=== PATIENT | male | born 1945 | race Caucasian/White ===

== ENCOUNTER 2020-11-12 12:53 | Inpatient (IN) | payer MEDICARE, OTHER ==
[2020-11-12] MEDS ORDERED: Azithromycin 500 MG VIAL ONE (14:26)
[2020-11-12] MEDS ORDERED: Dexamethasone 10 MG/ML VIAL ONE (14:27)
--- NOTE | 2020-11-12 14:29 | RAD ---
XR Chest 1 View Portable History: Dyspnea Comparison: None. Findings: Patchy peripheral and perihilar airspace consolidation. No pneumothorax. No acute osseous a bnormality. Impression: Commonly reported imaging findings of Covid-19 pneumonia.
[2020-11-12 15:39] LABS: #Lymphocytes 0.4 thou/uL (1.20-3.40); #Monocytes 0.1 thou/uL (0.11-0.59); #Neutrophils 7.1 thou/uL (1.40-6.50); %Basophils 0.1 % (0.0-1.0); %Eosinophils 0.1 % (0.0-10.0); %Lymphocytes 4.9 % (21.0-51.0); %Monocytes 1.2 % (0.0-10.0); %Neutrophils 93.7 % (42.0-75.0); Mean Corpuscular Hemoglobin 33.2 pg (27.0-31.0); Mean Corpuscular Volume 97.7 fL (78.0-98.0); Mean Platelet Volume 7.7 fL (7.4-10.4); Platelet Count 238 thou/uL (130-400); RBC Distribution Width 11.4 % (11.5-14.5); Red Blood Cell (RBC) Count 3.91 mill/uL (4.70-6.10); White Blood Cell (WBC) Count 7.6 thou/uL (4.8-10.8)
[2020-11-12 15:50] LABS: ALT (SGPT) 25 U/L (8-55); AST (SGOT) 37 U/L (5-34); Albumin 3.4 g/dL (3.4-4.8); Alkaline Phosphatase 82 U/L (40-110); Anion Gap 17 mmol/L (10-20); BUN (Urea Nitrogen) 19 mg/dL (8.4-25.7); Bilirubin, Total 0.5 mg/dL (0.2-1.2); Calc. Creatinine Clearance 0 mL/min (70-130); Calcium 8.7 mg/dL (7.8-10.44); Carbon Dioxide 25 mmol/L (23-31); Chloride 99 mmol/L (98-107); Globulin 3.3 g/dL (2.4-3.5); Glucose 286 mg/dL (83-110); Potassium 5.2 mmol/L (3.5-5.1); Protein, Total 6.7 g/dL (5.8-8.1); Sodium 136 mmol/L (136-145)
[2020-11-12] MEDS ORDERED: cefTRIAXone\\ROCEPHIN 2 GM VIAL ONE (16:48)
[2020-11-12] MEDS ORDERED: Acetaminophen 325 MG TAB ONE (17:45)
[2020-11-12] MEDS ORDERED: Acetaminophen 650 MG Suppository PR PRN (18:02)
[2020-11-12] MEDS ORDERED: Albuterol 200 PUFF (6.7GM INHALER) INH PRN (18:09)
[2020-11-12] MEDS ORDERED: Pharmacy to Dose - REMDESIVIR IVPB PRN (18:10)
[2020-11-12] MEDS ORDERED: Dextrose 50% Abboject 50 ML SYRINGE SLOW IVP PRN (18:13)
[2020-11-12] MEDS ORDERED: Dextrose 5% in Water 1,000 ML IV PRN (18:13)
[2020-11-12 18:52] LABS: Lactic Acid 2.7 mmol/L (0.5-2.2)
[2020-11-12 18:53] LABS: Anion Gap 17 mmol/L (10-20); Carbon Dioxide 21 mmol/L (23-31); Chloride 101 mmol/L (98-107); Potassium 5.2 mmol/L (3.5-5.1); Sodium 134 mmol/L (136-145)
[2020-11-12] MEDS ORDERED: Enoxaparin Sodium 40 MG/0.4 ML SYRINGE SC SCH ×2 (19:00→22:30)
[2020-11-12] MEDS ORDERED: Enoxaparin Sodium 40 MG/0.4 ML SYRINGE ONE (19:49)
[2020-11-12] MEDS ORDERED: Famotidine 20 MG TAB ONE (19:49)
[2020-11-12] MEDS: HumaLOG 300 UNITS/3 ML VIAL SC PRN (19:59)
[2020-11-12] MEDS ORDERED: HumaLOG 300 UNITS/3 ML VIAL ONE (19:59)
--- NOTE | 2020-11-12 20:27 | PDOC.HHP ---
Hospitalist HPI - History of Present Illness History of Present Illness: ADMISSION DATE: 11/12/2020 TIME OF ASSESSMENT: 1800 PRIMARY CARE PHYSICIAN: None CHIEF COMPLAINT: Shortness of breath HPI: This is a 75-year-old gentleman who presents to the emergency department with complaints of shortness of breath this morning secondary to Covid pneumonia. He was diagnosed after presenting to the [facility] today before yesterday. He states he was sent home and reattended the ED [facility] due to persistent difficulty breathing. Patient states nothing was done for him and today when he had another episode of trouble breathing he asked EMS to bring him here. Patient states that he first started feeling generally unwell and weak on 11/08/2020. This is after taking a trip to [place] with his family. He reports catching Covid from his daughter. States upon returning from the trip he began to feel achy all over" just sick". He has had a complete lack of energy the last several days but the difficulty with his breathing did not start until this weekend. This morning he developed loose stools. He has not had any purulent sputum or hemoptysis. No chest pain. When he was seen in the ER yesterday morning, diagnosed with COVID pneumonia and discharged home. He returned later in the evening due to sats of 88% on RA however in the ED his sats were 94-95% on RA and he was discharged home. Following initial presentation to the ED he had a CT angiogram of the chest done showing Covid pneumonia, hiatal hernia with wall thickening involving a large portion of the esophagus, suboptimal evaluation of the pulmonary arteries able to the bilateral lower lobes due to motion limiting evaluation. Hepatic steatosis, probable reactive mediastinal lymphadenopathy and pleural-based calcifications at each lung base, nonspecific and felt to be associated with p rior asbestos exposure. Per EMS, today he was noted to be hypoxic at 85% on room air which improved to 95% on 2 l by nasal cannula after 6 puffs of albuterol and 125 mg of Solu-Medrol IV. ED COURSE: On arrival to the emergency department he had an EKG done which showed normal sinus rhythm with a heart rate of 71. No ST changes or T wave abnormalities present. Laboratory studies showed a white cell count of 7.6, hemoglobin 13, hematocrit 38.2, platelets 238, neutrophils 93.7%. Sodium 136, potassium 5.2, BUN 19, creatinine 0.96, GFR 76, glucose 26, AST 37, LFTs otherwise unremarkable. Chest x-ray showed patchy peripheral and perihilar airspace consolidation with findings consistent with Covid 19 pneumonia. He received dexamethasone 10 mg IV and was started on IV antibiotics with Rocephin and azithromycin. The patient was given IV fluids as well as Tylenol for his fever. PAST MEDICAL HISTORY: 1. CAD 2. GERD 3. Hyperlipidemia 4. Hypertension 5. Diabetes mellitus 6. Obesity PAST SURGICAL HISTORY: 1. Carpal tunnel surgery, left wrist 2. Coronary artery stents x3 SOCIAL HISTORY: Patient denies any tobacco use, alcohol consumption or drug use. He is normally independent at baseline and mobilizes without the use of assistive devices. FAMILY HISTORY: Noncontributory ALLERGIES: No known drug allergies CURRENT MEDICATIONS: 1. Novolin 2. Lisinopril 3. Aspirin 4. Metformin 5. Clopidogrel 6. Atorvastatin Hospitalist ROS - Medication Medications: Active Medications Generic Name Dose Route Start Last Admin Trade Name Freq PRN Reason Stop Dose Admin Enoxaparin Sodium 40 mg 11/12/20 19:00 11/12/20 19:58 Enoxaparin Sodium 40 Mg/0.4 Ml Syringe SC 11/12/20 21:15 40 mg NOW DENISE Administration Insulin Human Lispro 0 units 11/12/20 18:13 11/12/20 19:59 Humalog 300 Units/3 Ml Vial SC 5 unit .BEDTIME SLIDING SC PRN Administration Bedtime Correctional Scale - Exam General Appearance: NAD (Resting comfortably watching tv), awake alert General - other findings: VS: Temp 98.8, HR 79, BP 170/77, RR 20, O2 sat 95% on 2 L Eye: PERRL, anicteric sclera ENT: normocephalic atraumatic, no oropharyngeal lesions, moist mucosa Neck: supple, no lymphadenopathy Heart: RRR, normal peripheral pulses Respiratory: CTAB, normal chest expansion, no tachypnea Gastrointestinal: soft (obese), non-tender, non-distended, normal bowel sounds, no guarding, no rigidity Extremities - other findings: trace edema Skin: normal turgor, no lesions, no rashes Neurological: cranial nerve grossly intact, normal sensation to touch, no weakness Musculoskeletal: normal tone, normal strength, no muscle wasting, generalized weakness Psychiatric: normal affect, normal behavior, A&O x 3 Hospitalist Results - Labs Result Diagrams: 11/12/20 15:18 11/12/20 18:24 Lab results: WBC 7.6 thou/uL (4.8-10.8) 11/12/20 15:18 Hgb 13.0 g/dL (14.0-18.0) L 11/12/20 15:18 Hct 38.2 % (42.0-52.0) L 11/12/20 15:18 MCV 97.7 fL (78.0-98.0) 11/12/20 15:18 Plt Count 238 thou/uL (130-400) 11/12/20 15:18 Neutrophils % 93.7 % (42.0-75.0) H 11/12/20 15:18 Sodium 134 mmol/L (136-145) L 11/12/20 18:24 Potassium 5.2 mmol/L (3.5-5.1) H 11/12/20 18:24 Chloride 101 mmol/L (98-107) 11/12/20 18:24 Carbon Dioxide 21 mmol/L (23-31) L 11/12/20 18:24 BUN 19 mg/dL (8.4-25.7) 11/12/20 15:18 Creatinine 0.96 mg/dL (0.7-1.3) 11/12/20 15:18 Glucose 286 mg/dL (83-110) H 11/12/20 15:18 Lactic Acid 2.7 mmol/L (0.5-2.2) H 11/12/20 18:24 Calcium 8.7 mg/dL (7.8-10.44) 11/12/20 15:18 Total Bilirubin 0.5 mg/dL (0.2-1.2) 11/12/20 15:18 AST 37 U/L (5-34) H 11/12/20 15:18 ALT 25 U/L (8-55) 11/12/20 15:18 Alkaline Phosphatase 82 U/L (40-110) 11/12/20 15:18 Troponin I Less than 0.010 ng/mL (< 0.028) 11/12/20 15:18 B-Natriuretic Peptide 11.1 pg/mL (0-100) 11/12/20 15:18 Serum Total Protein 6.7 g/dL (5.8-8.1) 11/12/20 15:18 Albumin 3.4 g/dL (3.4-4.8) 11/12/20 15:18 - Radiology Interpretation Chest x-ray Status: report reviewed by ga Hospitalist H&P A/P - Problem (1) Acute respiratory failure with hypoxia Code(s): J96.01 - ACUTE RESPIRATORY FAILURE WITH HYPOXIA Status: Acute (2) Pneumonia due to COVID-19 virus Code(s): U07.1 - COVID-19; J12.82 - PNEUMONIA DUE TO CORONAVIRUS DISEASE 2018 Status: Acute (3) General weakness Code(s): R53.1 - WEAKNESS Status: Acute (4) Diarrhea Code(s): R19.7 - DIARRHEA, UNSPECIFIED Status: Acute (5) Diabetes mellitus Code(s): E11.9 - TYPE 2 DIABETES MELLITUS WITHOUT COMPLICATIONS Status: Chron ic (6) Hypertension Code(s): I10 - ESSENTIAL (PRIMARY) HYPERTENSION Status: Chronic (7) GERD (gastroesophageal reflux disease) Code(s): K21.9 - GASTRO-ESOPHAGEAL REFLUX DISEASE WITHOUT ESOPHAGITIS Status: Chronic (8) Hyperlipidemia Code(s): E78.5 - HYPERLIPIDEMIA, UNSPECIFIED Status: Chronic (9) CAD (coronary artery disease) Code(s): I25.10 - ATHSCL HEART DISEASE OF [place] CORONARY ARTERY W/O ANG PCTRS Status: Chronic - Plan Plan: Acute respiratory failure with hypoxia secondary to COVID 19 pneumonia Sats improved Continue Dexamethasone, Vitamin C and Zinc Tessalon perles for cough and albuterol inhaler Screen for Remdesivir (symptoms started 11/08/20) Monitor O2 sats Repeat lactic acid General weakness PT/OT consulted Diarrhea If persists, obtain stool studies Diabetes Mellitus Monitor glucose (ACHS accu-cheks) Initiate sliding scale Hypertension Monitor BP Resume home meds once verified CAD Chronic and stable Resume statin and aspirin GERD Famotidine 20 mg BID DVT Prophylaxis Enoxaparin, enhanced dose of 40 mg BID given hypercoagulability with COVID19. CODE STATUS FULL Case discussed with Dr. Hinkle who agrees with plan as above.
[2020-11-12] MEDS ORDERED: Famotidine 20 MG TAB PO SCH (22:30)
[2020-11-12] MEDS: Sodium Chloride 0.45% 1,000 ML IV SCH (23:39)
[2020-11-12] MEDS: Benzonatate 100 MG CAP PO PRN (23:41)
[2020-11-12] MEDS: Acetaminophen 325 MG TAB PO PRN (23:41)
[2020-11-13] MEDS ORDERED: SODIUM CHLORIDE 0.9% IV SCH (02:00)
[2020-11-13] MEDS ORDERED: REMDESIVIR IV SCH (02:00)
[2020-11-13] MEDS ORDERED: REMDESIVIR (EUA) 200 MG in Sodium Chloride 0.9% 250 ML 210 ML IV SCH (02:00)
[2020-11-13] MEDS: HumaLOG 300 UNITS/3 ML VIAL SC PRN ×4 (05:42→21:02)
[2020-11-13] MEDS: Benzonatate 100 MG CAP PO PRN ×2 (05:43→18:02)
[2020-11-13 06:22] LABS: #Lymphocytes 0.5 thou/uL (1.20-3.40); #Monocytes 0.1 thou/uL (0.11-0.59); #Neutrophils 7.9 thou/uL (1.40-6.50); %Basophils 0.1 % (0.0-1.0); %Eosinophils 0.1 % (0.0-10.0); %Lymphocytes 5.9 % (21.0-51.0); %Monocytes 1.6 % (0.0-10.0); %Neutrophils 92.3 % (42.0-75.0); Hemoglobin 12.6 g/dL (14.0-18.0); Mean Corpuscular HGB CONC 33.2 g/dL (32.0-36.0); Mean Corpuscular Volume 99.5 fL (78.0-98.0); Mean Platelet Volume 7.7 fL (7.4-10.4); Platelet Count 236 thou/uL (130-400); RBC Distribution Width 11.4 % (11.5-14.5); Red Blood Cell (RBC) Count 3.82 mill/uL (4.70-6.10); White Blood Cell (WBC) Count 8.6 thou/uL (4.8-10.8)
[2020-11-13 06:44] LABS: ALT (SGPT) 29 U/L (8-55); AST (SGOT) 39 U/L (5-34); Albumin 3.1 g/dL (3.4-4.8); Alkaline Phosphatase 80 U/L (40-110); Anion Gap 18 mmol/L (10-20); BUN (Urea Nitrogen) 17 mg/dL (8.4-25.7); Bilirubin, Total 0.4 mg/dL (0.2-1.2); Calc. Creatinine Clearance 77 mL/min (70-130); Calcium 8.2 mg/dL (7.8-10.44); Carbon Dioxide 20 mmol/L (23-31); Chloride 101 mmol/L (98-107); Glucose 336 mg/dL (83-110); Potassium 4.8 mmol/L (3.5-5.1); Protein, Total 6.1 g/dL (5.8-8.1); Sodium 134 mmol/L (136-145)
[2020-11-13 06:52] LABS: CRP (Inflammatory) 12.7 mg/dL (= or < 0.5); Magnesium 1.7 mg/dL (1.6-2.6)
[2020-11-13] MEDS: Ascorbic Acid 500 mg Chewable Tablet PO SCH (08:02)
[2020-11-13] MEDS: Dexamethasone 4 mg/ml Vial SLOW IVP SCH (08:04)
[2020-11-13] MEDS: Famotidine 20 MG TAB PO SCH ×2 (08:04→21:04)
[2020-11-13] MEDS: Enoxaparin Sodium 40 MG/0.4 ML SYRINGE SC SCH ×2 (08:06→21:03)
[2020-11-13] MEDS: Zinc Sulfate 220 MG CAP PO SCH (08:50)
[2020-11-13] MEDS ORDERED: Enoxaparin Sodium 40 MG/0.4 ML SYRINGE SC SCH (09:00)
[2020-11-13] MEDS ORDERED: FLU VACC QS2020-21(65YR UP)/PF 240 MCG/0.7 ML SYRINGE IM ONE (09:00)
[2020-11-13] MEDS: Sodium Chloride 0.45% 1,000 ML IV SCH (16:25)
--- NOTE | 2020-11-13 16:30 | PDOC.HOSPP ---
- Subjective Encounter Date: 11/13/20 Encounter Time: 16:28 Subjective: Mr. Huizar was seen today in follow-up of respiratory failure due to COVID. He says he is feeling better. His breathing has improved. He denies chest pain. - Objective Vital Signs & Weight: Vital Signs (12 hours) Temp Pulse Resp BP BP Pulse Ox 11/13/20 15:29 97.8 F 75 17 118/64 86 L 11/13/20 11:27 98.0 F 78 16 126/62 91 L 11/13/20 08:00 92 L 11/13/20 07:15 98.3 F 73 15 129/68 92 L Weight Weight 174 lb I&O: 11/12/20 11/13/20 11/14/20 06:59 06:59 06:59 Intake Total 1070 Output Total 550 Balance 520 Result Diagrams: 11/13/20 05:29 11/13/20 05:29 Additional Labs: Accuchecks 11/13/20 11/13/20 11/13/20 15:31 11:29 03:23 POC Glucose 314 H 324 H 259 H 11/12/20 19:55 POC Glucose 356 H Hospitalist ROS - Medication Medications: Active Medications Generic Name Dose Route Start Last Admin Trade Name Freq PRN Reason Stop Dose Admin Acetaminophen 650 mg 11/12/20 18:02 11/12/20 23:41 Acetaminophen 325 Mg Tab PO 650 mg Q4H PRN Administration Headache/Fever/Mild Pain (1-3) Ascorbic Acid 1,000 mg 11/13/20 09:00 11/13/20 08:02 Ascorbic Acid 500 Mg Chewable Tablet PO 1,000 mg DAILY DENISE Administration Benzonatate 100 mg 11/12/20 18:09 11/13/20 05:43 Benzonatate 100 Mg Cap PO 100 mg Q4H PRN Administration Cough Dexamethasone 6 mg 11/13/20 09:00 11/13/20 08:04 Dexamethasone 4 Mg/Ml Vial SLOW IVP 6 mg DAILY DENISE Administration Enoxaparin Sodium 40 mg 11/13/20 09:00 11/13/20 08:06 Enoxaparin Sodium 40 Mg/0.4 Ml Syringe SC 40 mg 0900,2100 DENISE Administration Famotidine 20 mg 11/13/20 09:00 11/13/20 08:04 Famotidine 20 Mg Tab PO 20 mg BID DENISE Administration Sodium Chloride 1,000 mls @ 50 mls/hr 11/12/20 21:30 11/13/20 16:25 1/2 Normal Saline IV 1,000 mls .Q20H DENISE Administration Insulin Human Lispro 0 units 11/12/20 18:13 11/13/20 16:24 Humalog 300 Units/3 Ml Vial SC 5 unit .MILD SLIDING SCALE PRN Administration Mild Correctional Scale Insulin Human Lispro 0 units 11/12/20 18:13 11/12/20 19:59 Humalog 300 Units/3 Ml Vial SC 5 unit .BEDTIME SLIDING SC PRN Administration Bedtime Correctional Scale Zinc Sulfate 220 mg 11/13/20 09:00 11/13/20 08:50 Zinc Sulfate 220 Mg Cap PO Not Given DAILY DENISE - Exam Eye: PERRL, anicteric sclera Heart: RRR, no murmur, no gallops, no rubs, normal peripheral pulses Respiratory: rales (at both bases) Gastrointestinal: soft, non-tender, non-distended, normal bowel sounds, no palpable masses, no hepatomegaly Extremities: no cyanosis, no edema (+ good d.p. pulses bilaterally no lesions) Hosp A/P (1) Acute respiratory failure with hypoxia Code(s): J96.01 - ACUTE RESPIRATORY FAILURE WITH HYPOXIA Status: Acute (2) General weakness Code(s): R53.1 - WEAKNESS Status: Acute (3) Pneumonia due to COVID-19 virus Code(s): U07.1 - COVID-19; J12.82 - PNEUMONIA DUE TO CORONAVIRUS DISEASE 2019 Status: Acute (4) CAD (coronary artery disease) Code(s): I25.10 - ATHSCL HEART DISEASE OF [place] CORONARY ARTERY W/O ANG PCTRS Status: Chronic (5) Diabetes mellitus Code(s): E11.9 - TYPE 2 DIABETES MELLITUS WITHOUT COMPLICATIONS Status: Chronic (6) GERD (gastroesophageal reflux disease) Code(s): K21.9 - GASTRO-ESOPHAGEAL REFLUX DISEASE WITHOUT ESOPHAGITIS Status: Chronic - Plan * Acute respiratory failure due to COVID - continue Decadron and Remdesivir * CAD- stable * DM- blood glucose is elevated- likely as a result of the Decadron- will add a low dose Lantus, and continue the SSI * Continue DVT and GI prophylaxis
[2020-11-13] MEDS: Insulin Glargine 10 UNITS in Pre-Filled Syringe 1 EACH SC SCH (21:03)
--- NOTE | 2020-11-13 21:45 | PDOC.BPN ---
- Brief Progress Note Encounter Date: 11/13/20 Also informed of patient growing 1 in 2 bottles of staph epididymis This is likely a contamination Hold antibiotics for now and monitor vitals.
[2020-11-14] MEDS ORDERED: REMDESIVIR (EUA) 100 MG in Sodium Chloride 0.9% 250 ML 230 ML IV SCH (02:00)
[2020-11-14] MEDS: REMDESIVIR (EUA) 100 MG in Sodium Chloride 0.9% 100 ML IV SCH (02:03)
[2020-11-14] MEDS: Benzonatate 100 MG CAP PO PRN ×2 (02:33→17:01)
[2020-11-14] MEDS: HumaLOG 300 UNITS/3 ML VIAL SC PRN ×4 (05:33→20:51)
[2020-11-14] MEDS: Zinc Sulfate 220 MG CAP PO SCH (08:55)
[2020-11-14] MEDS: Famotidine 20 MG TAB PO SCH ×2 (08:56→20:49)
[2020-11-14] MEDS: Lisinopril 10 MG TAB PO SCH (08:56)
[2020-11-14] MEDS: Ascorbic Acid 500 mg Chewable Tablet PO SCH (08:56)
[2020-11-14] MEDS: Atorvastatin Calcium 40 MG TAB PO SCH (08:56)
[2020-11-14] MEDS: Clopidogrel Bisulfate 75 MG TAB PO SCH (08:56)
[2020-11-14] MEDS: Cholecalciferol 1,000 UNITS (25 MCG) TAB PO SCH (08:56)
[2020-11-14] MEDS: Aspirin Chewable 81 MG TAB PO SCH (08:56)
[2020-11-14] MEDS: Insulin Glargine 10 UNITS in Pre-Filled Syringe 1 EACH SC SCH (08:57)
[2020-11-14] MEDS: Dexamethasone 4 mg/ml Vial SLOW IVP SCH (08:57)
[2020-11-14] MEDS: Enoxaparin Sodium 40 MG/0.4 ML SYRINGE SC SCH ×2 (08:57→20:49)
[2020-11-14] MEDS ORDERED: Insulin Glargine 10 UNITS in Pre-Filled Syringe 1 EACH SC SCH (09:00)
[2020-11-14 09:10] LABS: Anion Gap 15 mmol/L (10-20); BUN (Urea Nitrogen) 21 mg/dL (8.4-25.7); Calc. Creatinine Clearance 70 mL/min (70-130); Calcium 8.3 mg/dL (7.8-10.44); Carbon Dioxide 21 mmol/L (23-31); Chloride 104 mmol/L (98-107); Glucose 279 mg/dL (83-110); Potassium 4.4 mmol/L (3.5-5.1); Sodium 136 mmol/L (136-145)
[2020-11-14] MEDS: Sodium Chloride 0.45% 1,000 ML IV SCH (12:09)
--- NOTE | 2020-11-14 17:36 | PDOC.HOSPP ---
- Subjective Encounter Date: 11/14/20 Encounter Time: 17:35 Subjective: Mr. Aragon was seen today in follow-up of COVID pneumonia. He says he continues to notice shortness of breath. His oxygen requirements increased some. He also notes some coughing spells. - Objective Vital Signs & Weight: Vital Signs (12 hours) Temp Pulse Resp BP Pulse Ox 11/14/20 09:00 94 L 11/14/20 08:19 98.2 F 60 20 138/77 94 L Weight Weight 174 lb I&O: 11/13/20 11/14/20 11/15/20 06:59 06:59 06:59 Intake Total 1070 2430 Output Total 550 1075 Balance 520 1355 Result Diagrams: 11/13/20 05:29 11/14/20 08:25 Additional Labs: Accuchecks 11/14/20 11/14/20 11/13/20 16:54 05:39 19:31 POC Glucose 271 H 283 H 291 H Hospitalist ROS - Medication Medications: Active Medications Generic Name Dose Route Start Last Admin Trade Name Freq PRN Reason Stop Dose Admin Acetaminophen 650 mg 11/12/20 18:02 11/12/20 23:41 Acetaminophen 325 Mg Tab PO 650 mg Q4H PRN Administration Headache/Fever/Mild Pain (1-3) Ascorbic Acid 1,000 mg 11/13/20 09:00 11/14/20 08:56 Ascorbic Acid 500 Mg Chewable Tablet PO 1,000 mg DAILY DENISE Administration Aspirin 81 mg 11/14/20 09:00 11/14/20 08:56 Aspirin Chewable 81 Mg Tab PO 81 mg DAILY DENISE Administration Atorvastatin Calcium 40 mg 11/14/20 09:00 11/14/20 08:56 Atorvastatin Calcium 40 Mg Tab PO 40 mg DAILY DENISE Administration Benzonatate 100 mg 11/12/20 18:09 11/14/20 17:01 Benzonatate 100 Mg Cap PO 100 mg Q4H PRN Administration Cough Cholecalciferol 5,000 units 11/14/20 09:00 11/14/20 08:56 Cholecalciferol 1,000 Units (25 Mcg) Tab PO 5,000 units DAILY DENISE Administration Clopidogrel Bisulfate 75 mg 11/14/20 09:00 11/14/20 08:56 Clopidogrel Bisulfate 75 Mg Tab PO 75 mg DAILY DENISE Administration Dexamethasone 6 mg 11/13/20 09:00 11/14/20 08:57 Dexamethasone 4 Mg/Ml Vial SLOW IVP 6 mg DAILY DENISE Administration Enoxaparin Sodium 40 mg 11/13/20 09:00 11/14/20 08:57 Enoxaparin Sodium 40 Mg/0.4 Ml Syringe SC 40 mg 0900,2100 DENISE Administration Famotidine 20 mg 11/13/20 09:00 11/14/20 08:56 Famotidine 20 Mg Tab PO 20 mg BID DENISE Administration Sodium Chloride 1,000 mls @ 50 mls/hr 11/12/20 21:30 11/14/20 12:09 1/2 Normal Saline IV 1,000 mls .Q20H DENISE Administration Remdesivir 100 mg/ Sodium 100 mls @ 100 mls/hr 11/14/20 02:00 11/14/20 02:03 Chloride IV 11/17/20 02:59 100 mls 0200 DENISE Administration Insulin Human Lispro 0 units 11/12/20 18:13 11/14/20 17:01 Humalog 300 Units/3 Ml Vial SC 4 unit .MILD SLIDING SCALE PRN Administration Mild Correctional Scale Insulin Human Lispro 0 units 11/12/20 18:13 11/13/20 21:02 Humalog 300 Units/3 Ml Vial SC 3 unit .BEDTIME SLIDING SC PRN Administration Bedtime Correctional Scale Lisinopril 10 mg 11/14/20 09:00 11/14/20 08:56 Lisinopril 10 Mg Tab PO 10 mg DAILY DENISE Administration Zinc Sulfate 220 mg 11/13/20 09:00 11/14/20 08:55 Zinc Sulfate 220 Mg Cap PO 220 mg DAILY DENISE Administration - Exam General Appearance: NAD Eye: PERRL, anicteric sclera Heart: RRR, no murmur, no gallops, no rubs, normal peripheral pulses Respiratory: no wheezes, no ronchi, rales (at both bases) Gastrointestinal: soft, non-tender, non-distended, normal bowel sounds, no palpable masses, no hepatomegaly, no splenomegaly Extremities: no cyanosis, no edema Hosp A/P (1) Acute respiratory failure with hypoxia Code(s): J96.01 - ACUTE RESPIRATORY FAILURE WITH HYPOXIA Status: Acute (2) General weakness Code(s): R53.1 - WEAKNESS Status: Acute (3) Pneumonia due to COVID-19 virus Code(s): U07.1 - COVID-19; J12.82 - PNEUMONIA DUE TO CORONAVIRUS DISEASE 2019 Status: Acute (4) CAD (coronary artery disease) Code(s): I25.10 - ATHSCL HEART DISEASE OF [place] CORONARY ARTERY W/O ANG PCTRS Status: Chronic (5) Diabetes mellitus Code(s): E11.9 - TYPE 2 DIABETES MELLITUS WITHOUT COMPLICATIONS Status: Chronic (6) GERD (gastroesophageal reflux disease) Code(s): K21.9 - GASTRO-ESOPHAGEAL REFLUX DISEASE WITHOUT ESOPHAGITIS Status: Chronic - Plan * Acute respiratory failure due to COVID - condition is still guarded, his oxygen requirements increased to 4 liters- continue Decadron and Remdesivir * CAD- stable * DM- will change him to his home dose and type of insulin and continue the SSI * Continue DVT and GI prophylaxis
[2020-11-15] MEDS: REMDESIVIR (EUA) 100 MG in Sodium Chloride 0.9% 100 ML IV SCH (01:57)
[2020-11-15] MEDS: HumaLOG 300 UNITS/3 ML VIAL SC PRN ×3 (06:43→20:11)
[2020-11-15 06:44] LABS: ALT (SGPT) 32 U/L (8-55); AST (SGOT) 28 U/L (5-34); Albumin 2.9 g/dL (3.4-4.8); Alkaline Phosphatase 78 U/L (40-110); Bilirubin, Direct 0.3 mg/dL (0.1-0.3); Bilirubin, Total 0.6 mg/dL (0.2-1.2); Protein, Total 5.6 g/dL (5.8-8.1)
[2020-11-15] MEDS: Zinc Sulfate 220 MG CAP PO SCH (08:23)
[2020-11-15] MEDS: Atorvastatin Calcium 40 MG TAB PO SCH (08:23)
[2020-11-15] MEDS: Dexamethasone 4 mg/ml Vial SLOW IVP SCH (08:23)
[2020-11-15] MEDS: Benzonatate 100 MG CAP PO PRN ×2 (08:23→20:10)
[2020-11-15] MEDS: Famotidine 20 MG TAB PO SCH ×2 (08:23→20:10)
[2020-11-15] MEDS: NPH, Human Insulin Isophane 300 UNIT/3 ML VIAL SC SCH ×2 (08:24→16:22)
[2020-11-15] MEDS: Aspirin Chewable 81 MG TAB PO SCH (08:24)
[2020-11-15] MEDS: Cholecalciferol 1,000 UNITS (25 MCG) TAB PO SCH (08:25)
[2020-11-15] MEDS: Clopidogrel Bisulfate 75 MG TAB PO SCH (08:25)
[2020-11-15] MEDS: Enoxaparin Sodium 40 MG/0.4 ML SYRINGE SC SCH ×2 (08:26→20:10)
[2020-11-15] MEDS: Lisinopril 10 MG TAB PO SCH (08:26)
[2020-11-15] MEDS: Ascorbic Acid 500 mg Chewable Tablet PO SCH (08:26)
[2020-11-15] MEDS: Sodium Chloride 0.45% 1,000 ML IV SCH (08:57)
--- NOTE | 2020-11-15 12:10 | PDOC.HOSPP ---
- Subjective Encounter Date: 11/15/20 Encounter Time: 12:08 Subjective: Mr. Aragon was seen today in follow-up of respiratory failure due to COVID pneumonia. He has been having a bit more trouble with his breathing. He has to be placed on high flow this morning. No new complaints. - Objective Vital Signs & Weight: Vital Signs (12 hours) Temp Pulse Resp BP Pulse Ox 11/15/20 12:05 97.6 F 58 L 20 161/82 H 91 L 11/15/20 11:28 94 L 11/15/20 09:20 98.7 F 60 20 147/68 H 87 L 11/15/20 08:00 87 L 11/15/20 05:53 98.2 F 57 L 20 145/72 H 92 L Weight Weight 174 lb I&O: 11/14/20 11/15/20 11/16/20 06:59 06:59 06:59 Intake Total 2430 1575 Output Total 1075 700 Balance 1355 875 Result Diagrams: 11/13/20 05:29 11/14/20 08:25 Additional Labs: Accuchecks 11/15/20 11/15/20 11/14/20 11:22 05:58 19:33 POC Glucose 249 H 231 H 250 H 11/14/20 11/14/20 16:54 11:13 POC Glucose 271 H 256 H Hospitalist ROS - Medication Medications: Active Medications Generic Name Dose Route Start Last Admin Trade Name Freq PRN Reason Stop Dose Admin Acetaminophen 650 mg 11/12/20 18:02 11/12/20 23:41 Acetaminophen 325 Mg Tab PO 650 mg Q4H PRN Administration Headache/Fever/Mild Pain (1-3) Ascorbic Acid 1,000 mg 11/13/20 09:00 11/15/20 08:26 Ascorbic Acid 500 Mg Chewable Tablet PO 1,000 mg DAILY DENISE Administration Aspirin 81 mg 11/14/20 09:00 11/15/20 08:24 Aspirin Chewable 81 Mg Tab PO 81 mg DAILY DENISE Administration Atorvastatin Calcium 40 mg 11/14/20 09:00 11/15/20 08:23 Atorvastatin Calcium 40 Mg Tab PO 40 mg DAILY DENISE Administration Benzonatate 100 mg 11/12/20 18:09 11/15/20 08:23 Benzonatate 100 Mg Cap PO 100 mg Q4H PRN Administration Cough Cholecalciferol 5,000 units 11/14/20 09:00 11/15/20 08:25 Cholecalciferol 1,000 Units (25 Mcg) Tab PO 5,000 units DAILY DENISE Administration Clopidogrel Bisulfate 75 mg 11/14/20 09:00 11/15/20 08:25 Clopidogrel Bisulfate 75 Mg Tab PO 75 mg DAILY DENISE Administration Dexamethasone 6 mg 11/13/20 09:00 11/15/20 08:23 Dexamethasone 4 Mg/Ml Vial SLOW IVP 6 mg DAILY DENISE Administration Enoxaparin Sodium 40 mg 11/13/20 09:00 11/15/20 08:26 Enoxaparin Sodium 40 Mg/0.4 Ml Syringe SC 40 mg 09,2099 DENISE Administration Famotidine 20 mg 11/13/20 09:00 11/15/20 08:23 Famotidine 20 Mg Tab PO 20 mg BID DENISE Administration Sodium Chloride 1,000 mls @ 50 mls/hr 11/12/20 21:30 11/15/20 08:57 1/2 Normal Saline IV Not Given .Q20H DENISE Remdesivir 100 mg/ Sodium 100 mls @ 100 mls/hr 11/14/20 02:00 11/15/20 01:57 Chloride IV 11/17/20 02:59 100 mls 0200 DENISE Administration Insulin Human Lispro 0 units 11/12/20 18:13 11/15/20 11:42 Humalog 300 Units/3 Ml Vial SC 3 unit .MILD SLIDING SCALE PRN Administration Mild Correctional Scale Insulin Human Lispro 0 units 11/12/20 18:13 11/14/20 20:51 Humalog 300 Units/3 Ml Vial SC 2 unit .BEDTIME SLIDING SC PRN Administration Bedtime Correctional Scale Insulin Human NPH 30 unit 11/15/20 07:30 11/15/20 08:24 Nph, Human Insulin Isophane 300 Unit/3 Ml Vial SC 30 unit BID-AC DENISE Administration Lisinopril 10 mg 11/14/20 09:00 11/15/20 08:26 Lisinopril 10 Mg Tab PO 10 mg DAILY DENISE Administration Zinc Sulfate 220 mg 11/13/20 09:00 11/15/20 08:23 Zinc Sulfate 220 Mg Cap PO 220 mg DAILY DENISE Administration - Exam Eye: PERRL, anicteric sclera Heart: RRR, no murmur, no gallops, no rubs, normal peripheral pulses Respiratory: no wheezes, no ronchi, rales (at both bases) Gastrointestinal: soft, non-tender, non-distended, normal bowel sounds, no palpable masses, no hepatomegaly Extremities: no cyanosis, 1+ LE edema Hosp A/P (1) Acute respiratory failure with hypoxia Code(s): J96.01 - ACUTE RESPIRATORY FAILURE WITH HYPOXIA Status: Acute (2) General weakness Code(s): R53.1 - WEAKNESS Status: Acute (3) Pneumonia due to COVID-19 virus Code(s): U07.1 - COVID-19; J12.82 - PNEUMONIA DUE TO CORONAVIRUS DISEASE 2019 Status: Acute (4) CAD (coronary artery disease) Code(s): I25.10 - ATHSCL HEART DISEASE OF [place] CORONARY ARTERY W/O ANG PCTRS Status: Chronic (5) Diabetes mellitus Code(s): E11.9 - TYPE 2 DIABETES MELLITUS WITHOUT COMPLICATIONS Status: Chronic (6) GERD (gastroesophageal reflux disease) Code(s): K21.9 - GASTRO-ESOPHAGEAL REFLUX DISEASE WITHOUT ESOPHAGITIS Status: Chronic - Plan * Acute respiratory failure due to COVID - condition is still guarded- he was placed on High FLow * Continue Decadron and Remdesivir * CAD- stable * DM- Continue NPH insulin and SSI * Continue DVT and GI prophylaxis
[2020-11-16] MEDS: REMDESIVIR (EUA) 100 MG in Sodium Chloride 0.9% 100 ML IV SCH (01:45)
[2020-11-16] MEDS: Benzonatate 100 MG CAP PO PRN ×2 (04:59→20:36)
[2020-11-16] MEDS: Acetaminophen 325 MG TAB PO PRN ×3 (04:59→20:31)
[2020-11-16 06:31] LABS: #Lymphocytes 0.7 thou/uL (1.20-3.40); #Monocytes 0.4 thou/uL (0.11-0.59); #Neutrophils 7.6 thou/uL (1.40-6.50); %Basophils 0.4 % (0.0-1.0); %Eosinophils 0.1 % (0.0-10.0); %Monocytes 4.3 % (0.0-10.0); %Neutrophils 87.2 % (42.0-75.0); Hemoglobin 12.1 g/dL (14.0-18.0); Mean Corpuscular HGB CONC 33.1 g/dL (32.0-36.0); Mean Corpuscular Hemoglobin 32.2 pg (27.0-31.0); Mean Corpuscular Volume 97.2 fL (78.0-98.0); Mean Platelet Volume 7.4 fL (7.4-10.4); Platelet Count 316 thou/uL (130-400); RBC Distribution Width 11.2 % (11.5-14.5); Red Blood Cell (RBC) Count 3.75 mill/uL (4.70-6.10); White Blood Cell (WBC) Count 8.7 thou/uL (4.8-10.8)
[2020-11-16 06:51] LABS: ALT (SGPT) 86 U/L (8-55); AST (SGOT) 46 U/L (5-34); Albumin 2.9 g/dL (3.4-4.8); Alkaline Phosphatase 98 U/L (40-110); Anion Gap 11 mmol/L (10-20); BUN (Urea Nitrogen) 22 mg/dL (8.4-25.7); Bilirubin, Direct 0.4 mg/dL (0.1-0.3); Bilirubin, Total 0.9 mg/dL (0.2-1.2); Calc. Creatinine Clearance 82 mL/min (70-130); Calcium 8.1 mg/dL (7.8-10.44); Carbon Dioxide 28 mmol/L (23-31); Chloride 103 mmol/L (98-107); Glucose 183 mg/dL (83-110); Potassium 4.7 mmol/L (3.5-5.1); Protein, Total 5.8 g/dL (5.8-8.1); Sodium 137 mmol/L (136-145)
[2020-11-16] MEDS: Cholecalciferol 1,000 UNITS (25 MCG) TAB PO SCH (08:03)
[2020-11-16] MEDS: Ascorbic Acid 500 mg Chewable Tablet PO SCH (08:03)
[2020-11-16] MEDS: Aspirin Chewable 81 MG TAB PO SCH (08:03)
[2020-11-16] MEDS: Atorvastatin Calcium 40 MG TAB PO SCH (08:03)
[2020-11-16] MEDS: Lisinopril 10 MG TAB PO SCH (08:03)
[2020-11-16] MEDS: Zinc Sulfate 220 MG CAP PO SCH (08:04)
[2020-11-16] MEDS: Clopidogrel Bisulfate 75 MG TAB PO SCH (08:04)
[2020-11-16] MEDS: Dexamethasone 4 mg/ml Vial SLOW IVP SCH (08:04)
[2020-11-16] MEDS: Enoxaparin Sodium 40 MG/0.4 ML SYRINGE SC SCH ×2 (08:04→20:30)
[2020-11-16] MEDS: Famotidine 20 MG TAB PO SCH ×2 (08:04→20:31)
[2020-11-16] MEDS: NPH, Human Insulin Isophane 300 UNIT/3 ML VIAL SC SCH ×2 (08:11→15:14)
[2020-11-16] MEDS: HumaLOG 300 UNITS/3 ML VIAL SC PRN ×3 (12:50→20:36)
--- NOTE | 2020-11-16 17:31 | PDOC.HOSPP ---
- Subjective Encounter Date: 11/16/20 Encounter Time: 17:29 Subjective: Mr. Aragon was seen today in follow-up of COVID pneumonia. He notes significant dyspnea when he is up moving around. He also notes a long time to recover. - Objective Vital Signs & Weight: Vital Signs (12 hours) Temp Pulse Resp BP Pulse Ox 11/16/20 14:31 88 L 11/16/20 08:25 98.1 F 67 20 148/76 H 95 11/16/20 08:00 95 11/16/20 07:07 90 L Weight Weight 174 lb I&O: 11/15/20 11/16/20 11/17/20 06:59 06:59 06:59 Intake Total 1575 680 Output Total 700 400 Balance 875 280 Result Diagrams: 11/16/20 06:00 11/16/20 06:00 Additional Labs: Accuchecks 11/16/20 11/16/20 11/16/20 16:21 12:25 08:13 POC Glucose 221 H 159 H 163 H 11/15/20 11/15/20 19:43 16:32 POC Glucose 216 H 244 H Hospitalist ROS - Medication Medications: Active Medications Generic Name Dose Route Start Last Admin Trade Name Freq PRN Reason Stop Dose Admin Acetaminophen 650 mg 11/12/20 18:02 11/16/20 04:59 Acetaminophen 325 Mg Tab PO 650 mg Q4H PRN Administration Headache/Fever/Mild Pain (1-3) Ascorbic Acid 1,000 mg 11/13/20 09:00 11/16/20 08:03 Ascorbic Acid 500 Mg Chewable Tablet PO 1,000 mg DAILY DENISE Administration Aspirin 81 mg 11/14/20 09:00 11/16/20 08:03 Aspirin Chewable 81 Mg Tab PO 81 mg DAILY DENSIE Administration Atorvastatin Calcium 40 mg 11/14/20 09:00 11/16/20 08:03 Atorvastatin Calcium 40 Mg Tab PO 40 mg DAILY DENISE Administration Benzonatate 100 mg 11/12/20 18:09 11/16/20 04:59 Benzonatate 100 Mg Cap PO 100 mg Q4H PRN Administration Cough Cholecalciferol 5,000 units 11/14/20 09:00 11/16/20 08:03 Cholecalciferol 1,000 Units (25 Mcg) Tab PO 5,000 units DAILY DENISE Administration Clopidogrel Bisulfate 75 mg 11/14/20 09:00 11/16/20 08:04 Clopidogrel Bisulfate 75 Mg Tab PO 75 mg DAILY DENISE Administration Dexamethasone 6 mg 11/13/20 09:00 11/16/20 08:04 Dexamethasone 4 Mg/Ml Vial SLOW IVP 6 mg DAILY DENISE Administration Enoxaparin Sodium 40 mg 11/13/20 09:00 11/16/20 08:04 Enoxaparin Sodium 40 Mg/0.4 Ml Syringe SC 40 mg 0900,2100 DENISE Administration Famotidine 20 mg 11/13/20 09:00 11/16/20 08:04 Famotidine 20 Mg Tab PO 20 mg BID DENISE Administration Remdesivir 100 mg/ Sodium 100 mls @ 100 mls/hr 11/14/20 02:00 11/16/20 01:45 Chloride IV 11/17/20 02:59 100 mls 0200 DENISE Administration Insulin Human Lispro 0 units 11/12/20 18:13 11/16/20 12:50 Humalog 300 Units/3 Ml Vial SC 2 unit .MILD SLIDING SCALE PRN Administration Mild Correctional Scale Insulin Human Lispro 0 units 11/12/20 18:13 11/15/20 20:11 Humalog 300 Units/3 Ml Vial SC 2 unit .BEDTIME SLIDING SC PRN Administration Bedtime Correctional Scale Insulin Human NPH 30 unit 11/15/20 07:30 11/16/20 15:14 Nph, Human Insulin Isophane 300 Unit/3 Ml Vial SC 30 unit BID-AC DENISE Administration Lisinopril 10 mg 11/14/20 09:00 11/16/20 08:03 Lisinopril 10 Mg Tab PO 10 mg DAILY DENISE Administration Zinc Sulfate 220 mg 11/13/20 09:00 11/16/20 08:04 Zinc Sulfate 220 Mg Cap PO 220 mg DAILY DENISE Administration - Exam Eye: PERRL, anicteric sclera Heart: RRR, no murmur, no gallops, no rubs, normal peripheral pulses Respiratory: no wheezes, no ronchi, rales (ay both bases) Gastrointestinal: soft, non-tender, non-distended, normal bowel sounds, no palpa ble masses, no hepatomegaly, no splenomegaly Extremities: no cyanosis, no edema (+ good distal pulses bilaterally) Hosp A/P (1) Acute respiratory failure with hypoxia Code(s): J96.01 - ACUTE RESPIRATORY FAILURE WITH HYPOXIA Status: Acute (2) General weakness Code(s): R53.1 - WEAKNESS Status: Acute (3) Pneumonia due to COVID-19 virus Code(s): U07.1 - COVID-19; J12.82 - PNEUMONIA DUE TO CORONAVIRUS DISEASE 2019 Status: Acute (4) CAD (coronary artery disease) Code(s): I25.10 - ATHSCL HEART DISEASE OF [place] CORONARY ARTERY W/O ANG PCTRS Status: Chronic (5) Diabetes mellitus Code(s): E11.9 - TYPE 2 DIABETES MELLITUS WITHOUT COMPLICATIONS Status: Chronic (6) GERD (gastroesophageal reflux disease) Code(s): K21.9 - GASTRO-ESOPHAGEAL REFLUX DISEASE WITHOUT ESOPHAGITIS Status: Chronic - Plan * Acute respiratory failure due to COVID -continue high flow oxygen * Incentive Spirometry * Continue Decadron and Remdesivir * CAD- stable * DM- Continue NPH insulin and SSI * Continue DVT and GI prophylaxis
[2020-11-17] MEDS: REMDESIVIR (EUA) 100 MG in Sodium Chloride 0.9% 100 ML IV SCH (01:17)
[2020-11-17 06:54] LABS: ALT (SGPT) 76 U/L (8-55); AST (SGOT) 32 U/L (5-34); Albumin 3.1 g/dL (3.4-4.8); Alkaline Phosphatase 114 U/L (40-110); Bilirubin, Direct 0.6 mg/dL (0.1-0.3); Bilirubin, Total 1.2 mg/dL (0.2-1.2); Protein, Total 6.3 g/dL (5.8-8.1)
[2020-11-17] MEDS: Atorvastatin Calcium 40 MG TAB PO SCH (08:17)
[2020-11-17] MEDS: Clopidogrel Bisulfate 75 MG TAB PO SCH (08:17)
[2020-11-17] MEDS: Lisinopril 10 MG TAB PO SCH (08:17)
[2020-11-17] MEDS: Aspirin Chewable 81 MG TAB PO SCH (08:17)
[2020-11-17] MEDS: Cholecalciferol 1,000 UNITS (25 MCG) TAB PO SCH (08:17)
[2020-11-17] MEDS: Enoxaparin Sodium 40 MG/0.4 ML SYRINGE SC SCH ×2 (08:17→20:58)
[2020-11-17] MEDS: Famotidine 20 MG TAB PO SCH ×2 (08:17→20:59)
[2020-11-17] MEDS: Dexamethasone 4 mg/ml Vial SLOW IVP SCH (08:17)
[2020-11-17] MEDS: Zinc Sulfate 220 MG CAP PO SCH (08:17)
[2020-11-17] MEDS: NPH, Human Insulin Isophane 300 UNIT/3 ML VIAL SC SCH ×2 (08:18→16:55)
[2020-11-17] MEDS: Ascorbic Acid 500 mg Chewable Tablet PO SCH (08:23)
--- NOTE | 2020-11-17 10:08 | PDOC.HOSPP ---
- Subjective Encounter Date: 11/17/20 Encounter Time: 10:06 Subjective: Mr. Huizar was seen today in follow-up of COVID pneumonia. He does not feel short of breath, but his oxygen saturations have been in the mid to high eighties, despite a maximum high flow. When i saw him he was able to maintain a saturation in the low 90's even while talking. But not with exertion. - Objective Vital Signs & Weight: Vital Signs (12 hours) Temp Pulse Resp BP BP Pulse Ox 11/17/20 08:23 86 L 11/17/20 08:00 98.1 F 74 24 H 148/75 H 85 L 11/17/20 05:30 62 22 H 91 L 11/17/20 04:00 61 20 91 L 11/17/20 01:20 98 F 55 L 20 145/78 H 91 L 11/17/20 00:00 64 20 91 L Weight Weight 174 lb I&O: 11/16/20 11/17/20 11/18/20 06:59 06:59 06:59 Intake Total 680 600 Output Total 400 550 Balance 280 50 Result Diagrams: 11/16/20 06:00 11/16/20 06:00 Additional Labs: Accuchecks 11/17/20 11/16/20 11/16/20 04:02 19:41 16:21 POC Glucose 157 H 260 H 221 H 11/16/20 11/16/20 11/16/20 12:25 04:50 04:48 POC Glucose 159 H 71 66 L Hospitalist ROS - Medication Medications: Active Medications Generic Name Dose Route Start Last Admin Trade Name Sarwatq PRN Reason Stop Dose Admin Acetaminophen 650 mg 11/12/20 18:02 11/16/20 20:31 Acetaminophen 325 Mg Tab PO 650 mg Q4H PRN Administration Headache/Fever/Mild Pain (1-3) Ascorbic Acid 1,000 mg 11/13/20 09:00 11/17/20 08:23 Ascorbic Acid 500 Mg Chewable Tablet PO 1,000 mg DAILY DENISE Administration Aspirin 81 mg 11/14/20 09:00 11/17/20 08:17 Aspirin Chewable 81 Mg Tab PO 81 mg DAILY DENISE Administration Atorvastatin Calcium 40 mg 11/14/20 09:00 11/17/20 08:17 Atorvastatin Calcium 40 Mg Tab PO 40 mg DAILY DENISE Administration Benzonatate 100 mg 11/12/20 18:09 11/16/20 20:36 Benzonatate 100 Mg Cap PO 100 mg Q4H PRN Administration Cough Cholecalciferol 5,000 units 11/14/20 09:00 11/17/20 08:17 Cholecalciferol 1,000 Units (25 Mcg) Tab PO 5,000 units DAILY DENISE Administration Clopidogrel Bisulfate 75 mg 11/14/20 09:00 11/17/20 08:17 Clopidogrel Bisulfate 75 Mg Tab PO 75 mg DAILY DENISE Administration Dexamethasone 6 mg 11/13/20 09:00 11/17/20 08:17 Dexamethasone 4 Mg/Ml Vial SLOW IVP 6 mg DAILY DENISE Administration Enoxaparin Sodium 40 mg 11/13/20 09:00 11/17/20 08:17 Enoxaparin Sodium 40 Mg/0.4 Ml Syringe SC 40 mg 09,2100 DENISE Administration Famotidine 20 mg 11/13/20 09:00 11/17/20 08:17 Famotidine 20 Mg Tab PO 20 mg BID DENISE Administration Insulin Human Lispro 0 units 11/12/20 18:13 11/16/20 17:31 Humalog 300 Units/3 Ml Vial SC 3 unit .MILD SLIDING SCALE PRN Administration Mild Correctional Scale Insulin Human Lispro 0 units 11/12/20 18:13 11/16/20 20:36 Humalog 300 Units/3 Ml Vial SC 3 unit .BEDTIME SLIDING SC PRN Administration Bedtime Correctional Scale Insulin Human NPH 30 unit 11/15/20 07:30 11/17/20 08:18 Nph, Human Insulin Isophane 300 Unit/3 Ml Vial SC 30 unit BID-AC DENISE Administration Lisinopril 10 mg 11/14/20 09:00 11/17/20 08:17 Lisinopril 10 Mg Tab PO 10 mg DAILY DENISE Administration Zinc Sulfate 220 mg 11/13/20 09:00 11/17/20 08:17 Zinc Sulfate 220 Mg Cap PO 220 mg DAILY DENISE Administration - Exam Eye: PERRL, anicteric sclera Heart: RRR, no murmur, no gallops, no rubs, normal peripheral pulses Respiratory: no wheezes, no ronchi, rales (at both bases) Gastrointestinal: soft, non-tender, non-distended, normal bowel sounds, no palpable masses, no hepatomegaly Extremities: no cyanosis, 1+ LE edema Hosp A/P (1) Acute respiratory failure with hypoxia Code(s): J96.01 - ACUTE RESPIRATORY FAILURE WITH HYPOXIA Status: Acute (2) General weakness Code(s): R53.1 - WEAKNESS Status: Acute (3) Pneumonia due to COVID-19 virus Code(s): U07.1 - COVID-19; J12.82 - PNEUMONIA DUE TO CORONAVIRUS DISEASE 2019 Status: Acute (4) CAD (coronary artery disease) Code(s): I25.10 - ATHSCL HEART DISEASE OF [place] CORONARY ARTERY W/O ANG PCTRS Status: Chronic (5) Diabetes mellitus Code(s): E11.9 - TYPE 2 DIABETES MELLITUS WITHOUT COMPLICATIONS Status: Chronic (6) GERD (gastroesophageal reflux disease) Code(s): K21.9 - GASTRO-ESOPHAGEAL REFLUX DISEASE WITHOUT ESOPHAGITIS Status: Chronic - Plan * Acute respiratory failure due to COVID -his oxygen requirements have been a bit tenuous. We will keep him on high flow, on the floor for now, but if his oxygen saturation drop again for a sustained length of time, then will move him to the IMCU or ICU, and place him on BiPAP * I have spoken with his Kristine, and explained this to her. * Incentive Spirometry * Continue Decadron and Remdesivir * CAD- stable * DM- blood glucose is a bit elevated- will continue NPH insulin and SSI and monitor * Continue DVT and GI prophylaxis
[2020-11-17] MEDS: HumaLOG 300 UNITS/3 ML VIAL SC PRN ×2 (12:30→16:57)
[2020-11-18] MEDS: Acetaminophen 325 MG TAB PO PRN (01:02)
[2020-11-18 05:20] LABS: #Lymphocytes 0.7 thou/uL (1.20-3.40); #Monocytes 0.2 thou/uL (0.11-0.59); #Neutrophils 8.4 thou/uL (1.40-6.50); %Eosinophils 0.1 % (0.0-10.0); %Lymphocytes 7.9 % (21.0-51.0); %Monocytes 2.3 % (0.0-10.0); %Neutrophils 89.8 % (42.0-75.0); Hemoglobin 13.1 g/dL (14.0-18.0); Mean Corpuscular Hemoglobin 30.8 pg (27.0-31.0); Mean Corpuscular Volume 96.4 fL (78.0-98.0); Mean Platelet Volume 7.3 fL (7.4-10.4); Platelet Count 463 thou/uL (130-400); RBC Distribution Width 11.4 % (11.5-14.5); Red Blood Cell (RBC) Count 4.26 mill/uL (4.70-6.10); White Blood Cell (WBC) Count 9.4 thou/uL (4.8-10.8)
[2020-11-18 05:44] LABS: Anion Gap 14 mmol/L (10-20); BUN (Urea Nitrogen) 26 mg/dL (8.4-25.7); Calc. Creatinine Clearance 90 mL/min (70-130); Calcium 8.4 mg/dL (7.8-10.44); Carbon Dioxide 24 mmol/L (23-31); Chloride 105 mmol/L (98-107); Glucose 95 mg/dL (83-110); Potassium 4.5 mmol/L (3.5-5.1); Sodium 138 mmol/L (136-145)
[2020-11-18] MEDS: NPH, Human Insulin Isophane 300 UNIT/3 ML VIAL SC SCH ×3 (08:40→17:41)
[2020-11-18] MEDS: Aspirin Chewable 81 MG TAB PO SCH (08:41)
[2020-11-18] MEDS: Zinc Sulfate 220 MG CAP PO SCH (08:41)
[2020-11-18] MEDS: Ascorbic Acid 500 mg Chewable Tablet PO SCH (08:42)
[2020-11-18] MEDS: Cholecalciferol 1,000 UNITS (25 MCG) TAB PO SCH (08:42)
[2020-11-18] MEDS: Atorvastatin Calcium 40 MG TAB PO SCH (08:42)
[2020-11-18] MEDS: Lisinopril 10 MG TAB PO SCH (08:42)
[2020-11-18] MEDS: Enoxaparin Sodium 40 MG/0.4 ML SYRINGE SC SCH ×2 (08:42→20:18)
[2020-11-18] MEDS: Clopidogrel Bisulfate 75 MG TAB PO SCH (08:42)
[2020-11-18] MEDS: Dexamethasone 4 mg/ml Vial SLOW IVP SCH (08:43)
--- NOTE | 2020-11-18 12:02 | RAD ---
PORTABLE CHEST: Date: 11/18/2020 PROVIDED CLINICAL HISTORY: COVID. FINDINGS: Comparison with 11/12/2020. The cardiac and mediastinal silhouette is unchanged in appearance. There is lucency adjacent to the l eft heart margin that may reflect pneumomediastinum. Bilateral air space disease is redemonstrated. T here is no pleural fluid or pneumothorax apparent. IMPRESSION: 1. Persistent bilateral air space disease. 2. Question pneumomediastinum. POS: LEVI
--- NOTE | 2020-11-18 13:40 | PDOC.HOSPP ---
- Subjective Encounter Date: 11/18/20 Encounter Time: 11:30 Subjective: is on bipap, not eating much says he feels better, they have increased his O2 on bipap from overnight oriented, lives with his - Objective Vital Signs & Weight: Vital Signs (12 hours) Temp Pulse Resp BP BP Pulse Ox 11/18/20 12:16 98.5 F 93 38 H 163/74 H 92 L 11/18/20 10:10 87 36 H 147/67 H 90 L 11/18/20 08:00 97.9 F 79 33 H 139/65 94 L 11/18/20 06:29 71 23 H 124/59 L 88 L 11/18/20 05:09 90 L 11/18/20 03:20 97.5 F L 69 28 H 112/57 L 86 L Weight Weight 174 lb I&O: 11/17/20 11/18/20 11/19/20 06:59 06:59 06:59 Intake Total 600 240 Output Total 550 Balance 50 240 Result Diagrams: 11/18/20 05:08 11/18/20 05:08 Additional Labs: Accuchecks 11/18/20 11/18/20 11/17/20 12:28 05:28 16:31 POC Glucose 175 H 94 230 H Hospitalist ROS - Medication Medications: Active Medications Generic Name Dose Route Start Last Admin Trade Name Sarwatq PRN Reason Stop Dose Admin Acetaminophen 650 mg 11/12/20 18:02 11/18/20 01:02 Acetaminophen 325 Mg Tab PO 650 mg Q4H PRN Administration Headache/Fever/Mild Pain (1-3) Ascorbic Acid 1,000 mg 11/13/20 09:00 11/18/20 08:42 Ascorbic Acid 500 Mg Chewable Tablet PO 1,000 mg DAILY DENISE Administration Aspirin 81 mg 11/14/20 09:00 11/18/20 08:41 Aspirin Chewable 81 Mg Tab PO 81 mg DAILY DENISE Administration Atorvastatin Calcium 40 mg 11/14/20 09:00 11/18/20 08:42 Atorvastatin Calcium 40 Mg Tab PO 40 mg DAILY DENISE Administration Benzonatate 100 mg 11/12/20 18:09 11/16/20 20:36 Benzonatate 100 Mg Cap PO 100 mg Q4H PRN Administration Cough Cholecalciferol 5,000 units 11/14/20 09:00 11/18/20 08:42 Cholecalciferol 1,000 Units (25 Mcg) Tab PO 5,000 units DAILY DENISE Administration Clopidogrel Bisulfate 75 mg 11/14/20 09:00 11/18/20 08:42 Clopidogrel Bisulfate 75 Mg Tab PO 75 mg DAILY DENISE Administration Dexamethasone 6 mg 11/13/20 09:00 11/18/20 08:43 Dexamethasone 4 Mg/Ml Vial SLOW IVP 6 mg DAILY DENISE Administration Enoxaparin Sodium 40 mg 11/13/20 09:00 11/18/20 08:42 Enoxaparin Sodium 40 Mg/0.4 Ml Syringe SC 40 mg 0900,2099 DENISE Administration Insulin Human Lispro 0 units 11/12/20 18:13 11/17/20 16:57 Humalog 300 Units/3 Ml Vial SC 3 unit .MILD SLIDING SCALE PRN Administration Mild Correctional Scale Insulin Human Lispro 0 units 11/12/20 18:13 11/16/20 20:36 Humalog 300 Units/3 Ml Vial SC 3 unit .BEDTIME SLIDING SC PRN Administration Bedtime Correctional Scale Insulin Human NPH 30 unit 11/15/20 07:30 11/18/20 08:40 Nph, Human Insulin Isophane 300 Unit/3 Ml Vial SC Not Given BID-AC DENISE Lisinopril 10 mg 11/14/20 09:00 11/18/20 08:42 Lisinopril 10 Mg Tab PO 10 mg DAILY DENISE Administration Pantoprazole Sodium 40 mg 11/18/20 09:00 11/18/20 08:43 Pantoprazole 40 Mg Tab PO 40 mg DAILY DENISE Administration Zinc Sulfate 220 mg 11/13/20 09:00 11/18/20 08:41 Zinc Sulfate 220 Mg Cap PO 220 mg DAILY DENISE Administration - Exam General Appearance: awake alert, ill appearing Eye: PERRL, anicteric sclera ENT: no oropharyngeal lesions, dry oral mucosa Neck: supple, no JVD Heart: RRR, no murmur Respiratory: no wheezes, rales, rhonchi Gastrointestinal: soft, non-tender, non-distended, normal bowel sounds Extremities: no cyanosis, no edema Neurological: cranial nerve grossly intact, no focal deficits Hosp A/P (1) Acute respiratory failure with hypoxia Code(s): J96.01 - ACUTE RESPIRATORY FAILURE WITH HYPOXIA Status: Acute (2) Pneumonia due to COVID-19 virus Code(s): U07.1 - COVID-19; J12.82 - PNEUMONIA DUE TO CORONAVIRUS DISEASE 2019 Status: Acute (3) CAD (coronary artery disease) Code(s): I25.10 - ATHSCL HEART DISEASE OF [place] CORONARY ARTERY W/O ANG PCTRS Status: Chronic Qualifiers: Coronary Disease-Associated Artery/Lesion type: [place] artery [place] vs. tr ansplanted heart: [place] heart Associated angina: without angina Qualified Code(s): I25.10 - Atherosclerotic heart disease of [place] coronary artery without angina pectoris (4) Diabetes mellitus Code(s): E11.9 - TYPE 2 DIABETES MELLITUS WITHOUT COMPLICATIONS Status: Chronic Qualifiers: Diabetes mellitus type: type 2 Diabetes mellitus extermination inspector insulin use: with fpc use (5) GERD (gastroesophageal reflux disease) Code(s): K21.9 - GASTRO-ESOPHAGEAL REFLUX DISEASE WITHOUT ESOPHAGITIS Status: Chronic Qualifiers: Esophagitis presence: esophagitis presence not specified Qualified Code(s): K21.9 - Gastro-esophageal reflux disease without esophagitis (6) Hyperlipidemia Code(s): E78.5 - HYPERLIPIDEMIA, UNSPECIFIED Status: Chronic Qualifiers: Hyperlipidemia type: unspecified Qualified Code(s): E78.5 - Hyperlipidemia, unspecified (7) Hypertension Code(s): I10 - ESSENTIAL (PRIMARY) HYPERTENSION Status: Chronic Qualifiers: Hypertension type: essential hypertension Qualified Code(s): I10 - Essential (primary) hypertension (8) Physical deconditioning Code(s): R53.81 - OTHER MALAISE Status: Acute - Plan is on bipap, dexamethasone, remdesivir, alb inhaler, will add dulera inh continue asp, lipitor, plavix, lisinopril and nph lower dose encourage po intake of food and liquids d/w Mrs.Byrd Carmona over phone and gave full updates counselled to stay active on bed and lay to sides or prone if he can with bipap and facial padding. prognosis guarded
[2020-11-18] MEDS: HumaLOG 300 UNITS/3 ML VIAL SC PRN ×2 (17:42→20:41)
[2020-11-19 05:18] LABS: Actual Bicarbonate (HCO3a) 22.9 mEq/L (22-28); Base Excess (BEa) 0.4 mEq/L (-2.0 to +3.0); CO2 Tension 30.9 mmHg (35.0-45.0); Calcium, Ionized (arterial) 1.15 mmol/L (1.12-1.30); Carboxyhemoglobin (COHb) 0.3 gm% (0.0-3.0); Hemoglobin (Hb) 14.3 g/dL (14.0-18.0); Potassium - ABG Lab 4.24 mmol/L (3.70-5.30); pH, Arterial 7.49 (7.35-7.45)
[2020-11-19 05:25] LABS: O2 Tension (PaO2), arterial 45.2 mmHg (> 70.0); Puncture Site RRA
[2020-11-19 05:26] LABS: ALV-art Gradient 557.875 mmHg (0-20)
[2020-11-19] MEDS: NPH, Human Insulin Isophane 300 UNIT/3 ML VIAL SC SCH ×2 (07:52→18:55)
[2020-11-19] MEDS: Aspirin Chewable 81 MG TAB PO SCH (07:58)
[2020-11-19] MEDS: Ascorbic Acid 500 mg Chewable Tablet PO SCH (07:58)
[2020-11-19] MEDS: Atorvastatin Calcium 40 MG TAB PO SCH (07:58)
[2020-11-19] MEDS: Cholecalciferol 1,000 UNITS (25 MCG) TAB PO SCH (07:58)
[2020-11-19] MEDS: Pantoprazole 40 MG VIAL IVP SCH ×2 (07:59→21:31)
[2020-11-19] MEDS: Enoxaparin Sodium 40 MG/0.4 ML SYRINGE SC SCH ×2 (07:59→21:31)
[2020-11-19] MEDS: Lisinopril 10 MG TAB PO SCH (07:59)
[2020-11-19] MEDS: Dexamethasone 4 mg/ml Vial SLOW IVP SCH (07:59)
[2020-11-19] MEDS: Zinc Sulfate 220 MG CAP PO SCH (08:00)
--- NOTE | 2020-11-19 10:41 | CT ---
CT CHEST: Date: 11/19/2020 PROVIDED CLINICAL HISTORY: Pneumomediastinum on chest radiograph. FINDINGS: Comparison made with the chest radiograph performed 11/18/2020. There is now extensive pneumomediastinum and extensive subcutaneous emphysema involving the base of t he neck. There is a small right pneumothorax and mild left pneumothorax. There is extensive ground-gl ass opacity involving the mid to lower lung zones with bibasilar consolidation. Foci of increased den sity at the right lung base associated with pleural may be on the basis of prior right pleural inflam mation. The heart, pericardium, and great vessels are suboptimally evaluated in the absence of IV con trast material. Vascular calcification including coronal calcium is demonstrated. There is no evidenc e for thoracic lymph node enlargement with limitations due to lack of IV contrast material. There is no evidence for pleural fluid. The visualized portions of the upper abdomen appear unremarkable. The osseous structures demonstrate no concerning lytic or blastic lesions. IMPRESSION: Extensive pneumomediastinum. Small right and mild left pneumothoraces. Findings communicated to the ordering clinician via [facility] at 1031 hours on 11/19/2020. CODE CR. POS: LEVI
[2020-11-19] MEDS: Sodium Chloride 0.45% 1,000 ML IV SCH (10:42)
[2020-11-19] MEDS: HumaLOG 300 UNITS/3 ML VIAL SC PRN ×3 (13:01→21:51)
[2020-11-19] MEDS ORDERED: Electrolyte Replacement Protocol 1 EACH FS ONE (14:00)
[2020-11-19] MEDS ORDERED: Electrolyte Replacement Protocol FS PRN (14:15)
--- NOTE | 2020-11-19 15:17 | PDOC.HOSPP ---
- Subjective Encounter Date: 11/19/20 Encounter Time: 11:30 Subjective: is on bipap, says he is better but fio2 is >90% on it now oriented well, is hard of hearing eating poorly due to being on bipap and air hunger with spo2 dropping quickly to feed - Objective Vital Signs & Weight: Vital Signs (12 hours) Temp Pulse Resp BP Pulse Ox 11/19/20 13:20 98.4 F 87 29 H 113/56 L 91 L 11/19/20 11:21 103 H 11/19/20 11:20 98 31 H 120/56 L 92 L 11/19/20 08:20 99.3 F 108 H 36 H 169/74 H 92 L 11/19/20 08:05 108 H 11/19/20 06:02 84 144/67 H 11/19/20 04:00 81 32 H 114/56 L 97 Weight Weight 174 lb I&O: 11/18/20 11/19/20 11/20/20 06:59 06:59 06:59 Intake Total 1080 120 Output Total 300 400 Balance 780 -280 Result Diagrams: 11/18/20 05:08 11/18/20 05:08 Additional Labs: Accuchecks 11/19/20 11/19/20 11/18/20 11:32 04:58 17:24 POC Glucose 226 H 195 H 428 H Hospitalist ROS - Medication Medications: Active Medications Generic Name Dose Route Start Last Admin Trade Name Freq PRN Reason Stop Dose Admin Acetaminophen 650 mg 11/12/20 18:02 11/18/20 01:02 Acetaminophen 325 Mg Tab PO 650 mg Q4H PRN Administration Headache/Fever/Mild Pain (1-3) Ascorbic Acid 1,000 mg 11/13/20 09:00 11/19/20 07:58 Ascorbic Acid 500 Mg Chewable Tablet PO 1,000 mg DAILY DENISE Administration Aspirin 81 mg 11/14/20 09:00 11/19/20 07:58 Aspirin Chewable 81 Mg Tab PO 81 mg DAILY DENISE Administration Atorvastatin Calcium 40 mg 11/14/20 09:00 11/19/20 07:58 Atorvastatin Calcium 40 Mg Tab PO 40 mg DAILY DENISE Administration Dexamethasone 6 mg 11/13/20 09:00 11/19/20 07:59 Dexamethasone 4 Mg/Ml Vial SLOW IVP 6 mg DAILY DENISE Administration Enoxaparin Sodium 40 mg 11/13/20 09:00 11/19/20 07:59 Enoxaparin Sodium 40 Mg/0.4 Ml Syringe SC 40 mg 0900,2100 DENISE Administration Sodium Chloride 1,000 mls @ 70 mls/hr 11/19/20 09:45 11/19/20 10:42 1/2 Normal Saline IV 1,000 mls .[id number] DENISE Administration Insulin Human Lispro 0 units 11/12/20 18:13 11/19/20 13:01 Humalog 300 Units/3 Ml Vial SC 3 unit .MILD SLIDING SCALE PRN Administration Mild Correctional Scale Insulin Human Lispro 0 units 11/12/20 18:13 11/18/20 20:41 Humalog 300 Units/3 Ml Vial SC 4 unit .BEDTIME SLIDING SC PRN Administration Bedtime Correctional Scale Insulin Human NPH 10 unit 11/18/20 16:30 11/19/20 07:52 Nph, Human Insulin Isophane 300 Unit/3 Ml Vial SC 10 unit BID-AC DENISE Administration Pantoprazole Sodium 40 mg 11/19/20 09:00 11/19/20 07:59 Pantoprazole 40 Mg Vial IVP 40 mg Q12HR DENISE Administration - Exam General Appearance: awake alert, ill appearing Eye: PERRL, anicteric sclera ENT: no oropharyngeal lesions, moist mucosa Neck: supple, no JVD Heart: RRR, no murmur Respiratory: no wheezes, rales, rhonchi Gastrointestinal: soft, non-tender, non-distended, normal bowel sounds Extremities: no cyanosis, no edema Neurological: cranial nerve grossly intact, no focal deficits Psychiatric: A&O x 3 Hosp A/P (1) Acute respiratory failure with hypoxia Code(s): J96.01 - ACUTE RESPIRATORY FAILURE WITH HYPOXIA Status: Acute (2) Pneumonia due to COVID-19 virus Code(s): U07.1 - COVID-19; J12.82 - PNEUMONIA DUE TO CORONAVIRUS DISEASE 2019 Status: Acute (3) CAD (coronary artery disease) Code(s): I25.10 - ATHSCL HEART DISEASE OF [place] CORONARY ARTERY W/O ANG PCTRS Status: Chronic Qualifiers: Coronary Disease-Associated Artery/Lesion type: [place] artery [place] vs. transplanted heart: [place] heart Associated angina: without angina Qualified Code(s): I25.10 - Atherosclerotic heart disease of [place] coronary artery without angina pectoris (4) Diabetes mellitus Code(s): E11.9 - TYPE 2 DIABETES MELLITUS WITHOUT COMPLICATIONS Status: Chronic Qualifiers: Diabetes mellitus type: type 2 Diabetes mellitus alf insulin use: with bed bug exterminator use (5) GERD (gastroesophageal reflux disease) Code(s): K21.9 - GASTRO-ESOPHAGEAL REFLUX DISEASE WITHOUT ESOPHAGITIS Status: Chronic Qualifiers: Esophagitis presence: esophagitis presence not specified Qualified Code(s): K21.9 - Gastro-esophageal reflux disease without esophagitis (6) Hyperlipidemia Code(s): E78.5 - HYPERLIPIDEMIA, UNSPECIFIED Status: Chronic Qualifiers: Hyperlipidemia type: unspecified Qualified Code(s): E78.5 - Hyperlipidemia, unspecified (7) Hypertension Code(s): I10 - ESSENTIAL (PRIMARY) HYPERTENSION Status: Chronic Qualifiers: Hypertension type: essential hypertension Qualified Code(s): I10 - Essential (primary) hypertension (8) Physical deconditioning Code(s): R53.81 - OTHER MALAISE Status: Acute (9) Pneumothorax Code(s): J93.9 - PNEUMOTHORAX, UNSPECIFIED Status: Acute Qualifiers: Pneumothorax type: spontaneous, secondary Qualified Code(s): J93.12 - Secondary spontaneous pneumothorax - Plan CT chest results noted, d/w , will transfer to ccu for likely intubation, chest tube if pneumo gets bigger or spo2 worsens is on bipap, dexamethasone, remdesivir, alb inhaler, will add dulera inh continue asp and nph lower dose keep him npo for possible intubation to avoid aspiration. d/w Mrs.Byrd Carmona over phone and gave full updates 11/18, 11/19 (she is aware he might get intubated), d/w daughter and her over phone and gave full updates and likely plan ahead including intubation, chest tube etc. They were also given information about possible trach, peg at some point around 21 days if needed, ltac and the likely road to recovery if he gets better. 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 counselled to stay active on bed and lay to sides or prone if he can with bipap and facial padding until he gets on vent. prognosis guarded
--- NOTE | 2020-11-19 17:49 | RAD ---
Chest one view HISTORY: Intubated. COMPARISON: CT chest earlier on the same date. FINDINGS: Cardiac silhouette is magnified by projection. Pulmonary vasculature are unremarkable. Mediastinum is midline. Tip of an endotracheal catheter projects over the thoracic inlet. Nasogastric tube descends to the abdomen. Mediastinal gas outlining the left pericardium and extending vertically into the neck correlates with recent CT findings. Additional soft tissue gas is present throughout the neck and upper chest. Pneumothoraces on recent CT are not well visualized on this exam. Groundglass opacity at the lung bases correlates with CT findings. IMPRESSION : Endotracheal catheter and nasogastric tube in good radiographic position. Pneumomediastinum and other findings are stable.
[2020-11-19] MEDS ORDERED: Rocuronium Bromide 10 MG/ML (10ML VIAL) ONE ×2 (18:24→18:27)
[2020-11-19] MEDS ORDERED: Lorazepam 2 MG/ML VIAL ONE (18:24)
[2020-11-19] MEDS ORDERED: Vecuronium 10 MG VIAL IV PRN (18:32)
[2020-11-19] MEDS ORDERED: Sterile Water 10 ML VIAL IVP PRN (18:33)
[2020-11-19] MEDS ORDERED: Propofol BOLUS 1,000 MG/100 ML VIAL IV PRN (18:45)
[2020-11-19] MEDS ORDERED: Morphine 2 MG/ML VIAL SLOW IVP PRN (18:45)
[2020-11-19] MEDS ORDERED: DISCONTINUE PREVIOUS NARCOTIC PAIN MEDICATIONS AND BENZODIAZEPINES FS SCH (18:45)
[2020-11-19] MEDS ORDERED: Fentanyl BOLUS 250 ML IVPB PRN (18:45)
--- NOTE | 2020-11-19 18:53 | CON ---
DATE OF CONSULTATION: 11/19/2020 HISTORY OF PRESENT ILLNESS: Mr. Huizar is a 75-year-old male with COVID that was apparently acquired after going to [place]. Chest x-ray yesterday showed diffuse infiltrates. Chest CT today showed apical pneumothorax on the left and pneumomediastinum. I evaluated him after I reviewed the CT with Dr. Lara. PAST MEDICAL HISTORY: 1. History of coronary artery disease. 2. History of reflux. 3. Lipid disorder. 4. Hypertension. 5. Diabetes. 6. History of carpal tunnel surgery. 7. History of 3 coronary stents. SOCIAL HISTORY: He is a nonsmoker and nondrinker. FAMILY HISTORY: Negative for lung disease. ALLERGIES: HE HAS NO REPORTED DRUG ALLERGIES. MEDICATIONS: Prior to admission, he was on; 1. Insulin. 2. Lisinopril. 3. Aspirin. 4. Metformin. 5. Plavix. 6. Atorvastatin. REVIEW OF SYSTEMS: Otherwise negative. He denies being tired. Unfortunately, he is on 90% FiO2 on BiPAP with significant pressure support. PHYSICAL EXAMINATION: VITAL SIGNS: He is afebrile, heart rate 87, respiratory rates in the 20s. HEAD AND NECK: Unremarkable. LUNGS: Remarkable for coarse equal breath sounds. HEART: Regular rhythm. ABDOMEN: Soft and nontender. EXTREMITIES: Without edema. LABORATORY DATA: White count 9.4, hemoglobin 13.1, platelets 463. No electrolytes today. Blood gas earlier today showed a pH of 7.49, CO2 of 30, PO2 of 45. IMPRESSION: COVID pneumonia. CT scan shows classic alveolar infiltrates involving the posterior aspect of both lung bases. I suspect that if we intubate him and prone him, will have dramatic improvement in gas exchange. We will ask to do a chest x-ray after he is intubated to make sure his pneumothorax is not progressing, but as in may of these patients, they seem to have small pneumos and do not always require chest tube placement. We will follow with the other physicians caring for him. He will be sedated and paralyzed and prone ventilated. We will follow him. CRITICAL CARE TIME: 40 minutes. Job ID: [id number] MTDD
[2020-11-19] MEDS ORDERED: Fentanyl CADD 100 ML ONE (19:31)
[2020-11-19] MEDS: Fentanyl CADD 100 ML IV SCH (19:40)
[2020-11-19] MEDS: Lorazepam 2 MG/ML VIAL SLOW IVP PRN (20:32)
[2020-11-19] MEDS: Propofol 1,000 MG/100 ML VIAL IV PRN (22:51)
[2020-11-20] MEDS: Sodium Chloride 0.45% 1,000 ML IV SCH ×2 (00:14→13:08)
[2020-11-20] MEDS: Lorazepam 2 MG/ML VIAL SLOW IVP PRN ×3 (01:33→23:06)
[2020-11-20] MEDS: Vecuronium 10 MG VIAL IV PRN (02:42)
[2020-11-20] MEDS: HumaLOG 300 UNITS/3 ML VIAL SC PRN ×4 (03:39→21:07)
[2020-11-20 04:13] LABS: Anion Gap 14 mmol/L (10-20); BUN (Urea Nitrogen) 42 mg/dL (8.4-25.7); Calc. Creatinine Clearance 67 mL/min (70-130); Calcium 7.6 mg/dL (7.8-10.44); Carbon Dioxide 22 mmol/L (23-31); Chloride 105 mmol/L (98-107); Glucose 211 mg/dL (83-110); Sodium 136 mmol/L (136-145)
[2020-11-20 04:26] LABS: Band 11 % (5-11); Lymphocytes 1 % (21-51); MDiff Complete? YES; Mean Corpuscular HGB CONC 33.4 g/dL (32.0-36.0); Mean Corpuscular Volume 98.8 fL (78.0-98.0); Mean Platelet Volume 7.5 fL (7.4-10.4); Monocytes 4 % (0-10); Neutrophil 84 % (42-75); Platelet Count 401 thou/uL (130-400); Platelet Morphology Comment Appears Adequate; RBC Distribution Width 11.6 % (11.5-14.5); Red Blood Cell (RBC) Count 3.92 mill/uL (4.70-6.10)
--- NOTE | 2020-11-20 08:27 | RAD ---
Portable frontal chest radiograph: 11/20/2020 COMPARISON: 11/19/2020 HISTORY: Ventilated patient FINDINGS: There is subcutaneous gas in the supraclavicular region bilaterally. There is pneumomediast inum with gas tracking into the neck, similar when compared to prior imaging. Coarse linear density noted in the perihilar regions and both lung bases, left greater than right, not significantly change d. Stable endotracheal tube and nasogastric tube. No discrete pneumothorax on either side. IMPRESSION: No appreciable interval change.
[2020-11-20] MEDS: NPH, Human Insulin Isophane 300 UNIT/3 ML VIAL SC SCH ×2 (09:31→17:03)
[2020-11-20] MEDS: Ascorbic Acid 500 mg Chewable Tablet PO SCH (09:32)
[2020-11-20] MEDS: Aspirin Chewable 81 MG TAB PO SCH (09:32)
[2020-11-20] MEDS: Pantoprazole 40 MG VIAL IVP SCH ×2 (09:33→20:19)
[2020-11-20] MEDS: Atorvastatin Calcium 40 MG TAB PO SCH (09:33)
[2020-11-20] MEDS: Dexamethasone 4 mg/ml Vial SLOW IVP SCH (09:36)
[2020-11-20] MEDS: Enoxaparin Sodium 40 MG/0.4 ML SYRINGE SC SCH ×2 (09:37→20:19)
[2020-11-20] MEDS: Propofol 1,000 MG/100 ML VIAL IV PRN ×2 (09:38→19:58)
[2020-11-20] MEDS: Fentanyl CADD 100 ML IV SCH (13:27)
--- NOTE | 2020-11-20 14:49 | PRG ---
DATE OF SERVICE: 11/20/2020 TIME SPENT: 30 minutes of critical care time. SUBJECTIVE: The patient remains intubated on mechanical ventilation in a prone position. OBJECTIVE: VITAL SIGNS: Temperature 97.3, pulse 86, blood pressure 109/50, O2 saturation 95% on 60% oxygen. 24-hour intake 1058, output 965. HEENT: Difficult to assess. LUNGS: Coarse breath sounds. CARDIAC: S1, S2. Regular. ABDOMEN: Soft. EXTREMITIES: No edema. IMAGING DATA: His chest x-ray shows bilateral lower lobe infiltrates. ET tube in good position. LABORATORY DATA: White blood cell count 14, hematocrit 38, and platelet count 401. Sodium 136, potassium 5, chloride 105, CO2 of 22, BUN 42, creatinine 1.1, glucose 211. ASSESSMENT: 1. Coronavirus disease 2019 pneumonia. 2. Acute hypoxic respiratory failure requiring mechanical ventilation. 3. Diabetes mellitus. 4. History of coronary artery disease. PLAN: We will leave him in prone position for 24 more hours. He is continuing steroids and anticoagulation. His prognosis is very marginal for recovery. Job ID: [id number]
--- NOTE | 2020-11-20 15:44 | PDOC.HOSPP ---
- Subjective Encounter Date: 11/20/20 Encounter Time: 07:45 Subjective: is in prone position on vent, sedated - Objective Vital Signs & Weight: Vital Signs (12 hours) Temp Pulse Resp BP Pulse Ox 11/20/20 14:54 82 104/47 L 11/20/20 12:00 20 11/20/20 10:09 89 108/49 L 11/20/20 10:00 20 11/20/20 08:00 20 11/20/20 07:00 97.3 F L 11/20/20 06:59 86 102/49 L 97 11/20/20 06:00 11/20/20 04:00 98.6 F 20 Weight Weight 174 lb Most Recent Monitor Data Heart Rate from ECG 86 NIBP 109/50 NIBP BP-Mean 69 Respiration from ECG 20 SpO2 95 I&O: 11/19/20 11/20/20 11/21/20 06:59 06:59 06:59 Intake Total 1080 1058 60 Output Total 300 965 160 Balance 780 93 -100 Result Diagrams: 11/20/20 03:41 11/20/20 03:41 Additional Labs: Accuchecks 11/20/20 11/20/20 11/19/20 10:47 03:40 21:36 POC Glucose 150 H 191 H 267 H 11/19/20 17:42 POC Glucose 256 H Hospitalist ROS - Medication Medications: Active Medications Generic Name Dose Route Start Last Admin Trade Name Freq PRN Reason Stop Dose Admin Acetaminophen 650 mg 11/12/20 18:02 11/18/20 01:02 Acetaminophen 325 Mg Tab PO 650 mg Q4H PRN Administration Headache/Fever/Mild Pain (1-3) Ascorbic Acid 1,000 mg 11/13/20 09:00 11/20/20 09:32 Ascorbic Acid 500 Mg Chewable Tablet PO 1,000 mg DAILY DENISE Administration Aspirin 81 mg 11/14/20 09:00 11/20/20 09:32 Aspirin Chewable 81 Mg Tab PO 81 mg DAILY DENISE Administration Atorvastatin Calcium 40 mg 11/14/20 09:00 11/20/20 09:33 Atorvastatin Calcium 40 Mg Tab PO 40 mg DAILY DENISE Administration Dexamethasone 6 mg 11/13/20 09:00 11/20/20 09:36 Dexamethasone 4 Mg/Ml Vial SLOW IVP 6 mg DAILY DENISE Administration Enoxaparin Sodium 40 mg 11/13/20 09:00 11/20/20 09:37 Enoxaparin Sodium 40 Mg/0.4 Ml Syringe SC 40 mg 0900,2100 DENISE Administration Sodium Chloride 1,000 mls @ 70 mls/hr 11/19/20 09:45 11/20/20 13:08 1/2 Normal Saline IV 1,000 mls .[id number] DENISE Administration Fentanyl 100 mls @ 0 mls/hr 11/19/20 18:45 11/20/20 13:27 Fentanyl Cadd IV 12/19/20 18:45 100 mls INF DENISE Administration Protocol Per Protocol Insulin Human Lispro 0 units 11/12/20 18:13 11/20/20 11:50 Humalog 300 Units/3 Ml Vial SC 2 unit .MILD SLIDING SCALE PRN Administration Mild Correctional Scale Insulin Human Lispro 0 units 11/12/20 18:13 11/18/20 20:41 Humalog 300 Units/3 Ml Vial SC 4 unit .BEDTIME SLIDING SC PRN Administration Bedtime Correctional Scale Insulin Human NPH 10 unit 11/18/20 16:30 11/20/20 09:31 Nph, Human Insulin Isophane 300 Unit/3 Ml Vial SC 10 unit BID-AC DENISE Administration Lorazepam 2 mg 11/19/20 18:45 11/20/20 12:19 Lorazepam 2 Mg/Ml Vial SLOW IVP 12/19/20 18:45 2 mg Q1H PRN Administration Breakthrough agitation Pantoprazole Sodium 40 mg 11/19/20 09:00 11/20/20 09:33 Pantoprazole 40 Mg Vial IVP 40 mg Q12HR DENISE Administration Propofol 1,000 mg 11/19/20 18:45 11/20/20 09:38 Propofol 1,000 Mg/100 Ml Vial IV 12/19/20 18:45 1,000 mg INF PRN Administration TO ACHIEVE GOAL RASS Protocol Vecuronium [place] 10 mg 11/20/20 01:48 11/20/20 02:42 Vecuronium 10 Mg Vial IV 10 mg Q1H PRN Administration SPASM - Exam General Appearance: ill appearing Eye: PERRL, anicteric sclera ENT: normocephalic atraumatic, no oropharyngeal lesions Neck: supple, no JVD Heart: RRR, no murmur Respiratory: no wheezes, rales, rhonchi Gastrointestinal: soft, non-tender, non-distended, normal bowel sounds Extremities: no cyanosis, no edema Neurological: cranial nerve grossly intact, no focal deficits Hosp A/P (1) Acute respiratory failure with hypoxia Code(s): J96.01 - ACUTE RESPIRATORY FAILURE WITH HYPOXIA Status: Acute (2) Pneumonia due to COVID-19 virus Code(s): U07.1 - COVID-19; J12.82 - PNEUMONIA DUE TO CORONAVIRUS DISEASE 2019 Status: Acute (3) CAD (coronary artery disease) Code(s): I25.10 - ATHSCL HEART DISEASE OF [place] CORONARY ARTERY W/O ANG PCTRS Status: Chronic Qualifiers: Coronary Disease-Associated Artery/Lesion type: [place] artery [place] vs. 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-term use (5) GERD (gastroesophageal reflux disease) Code(s): K21.9 - GASTRO-ESOPHAGEAL REFLUX DISEASE WITHOUT ESOPHAGITIS Status: Chronic Qualifiers: Esophagitis presence: esophagitis presence not specified Qualified Code(s): K21.9 - Gastro-esophageal reflux disease without esophagitis (6) Hyperlipidemia Code(s): E78.5 - HYPERLIPIDEMIA, UNSPECIFIED Status: Chronic Qualifiers: Hyperlipidemia type: unspecified Qualified Code(s): E78.5 - Hyperlipidemia, unspecified (7) Hypertension Code(s): I10 - ESSENTIAL (PRIMARY) HYPERTENSION Status: Chronic Qualifiers: Hypertension type: essential hypertension Qualified Code(s): I10 - Essential (primary) hypertension (8) Physical deconditioning Code(s): R53.81 - OTHER MALAISE Status: Acute (9) Pneumothorax Code(s): J93.9 - PNEUMOTHORAX, UNSPECIFIED Status: Acute Qualifiers: Pneumothorax type: spontaneous, secondary Qualified Code(s): J93.12 - Secondary spontaneous pneumothorax - Plan weaning likely from am as tolerated, is in prone position on vent, no pneumothorax seen on today's cxr. is on dexamethasone, alb inhaler, dulera inh, finished full course of remdesivir. continue asp and nph lower dose d/w Mrs.Byrd Carmona over phone and gave full updates 11/18, 11/19, 11/20. 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 prognosis guarded
--- NOTE | 2020-11-20 16:40 | CON ---
DATE OF CONSULTATION: This is a 75-year-old gentleman with a diagnosis of COVID pneumonia who underwent a CT scan yesterday, demonstrating subcutaneous air and a small left-sided pneumothorax in conjunction with infiltrates in the both lungs, suggestive of COVID pneumonia. He acquired this disease after traveling with his family to [place], and evidently his daughter was the initial contact, and subsequently, the patient and his both became COVID positive and he is now hospitalized with multiple risk factors including diabetes mellitus, hypertension, previous coronary artery stenting, and dyslipidemia. He has been hospitalized for about a week and has had progressively increasing higher oxygen requirements and was seen by Dr. Armendariz today, who recommended intubation. I have reviewed the studies pre and post intubation and the patient's post intubation chest x-ray as well as a chest x-ray from the following morning following intubation show no obvious pneumothorax, and the subcutaneous air seems to be limited to the cervical region on chest x-ray and on CT scan was both mediastinal and cervical. At this time, there is probably no benefit to placing a left-sided chest tube, but will be available should this need arise. Job ID: [id number]
[2020-11-21] MEDS: Vecuronium 10 MG VIAL IV PRN ×2 (00:59→15:51)
[2020-11-21] MEDS ORDERED: Fentanyl CADD 100 ML ONE (03:33)
[2020-11-21 04:05] LABS: Band 8 % (5-11); Hemoglobin 12.1 g/dL (14.0-18.0); Hypochromia SLIGHT = 6-15 cells (100X) (0-5/hpf); Lymphocytes 2 % (21-51); MDiff Complete? YES; Mean Corpuscular HGB CONC 33.9 g/dL (32.0-36.0); Mean Corpuscular Hemoglobin 33.4 pg (27.0-31.0); Mean Corpuscular Volume 98.3 fL (78.0-98.0); Mean Platelet Volume 7.7 fL (7.4-10.4); Monocytes 5 % (0-10); Neutrophil 85 % (42-75); Platelet Count 382 thou/uL (130-400); Platelet Morphology Comment Appears Adequate; RBC Distribution Width 11.4 % (11.5-14.5); Red Blood Cell (RBC) Count 3.64 mill/uL (4.70-6.10); White Blood Cell (WBC) Count 12.4 thou/uL (4.8-10.8)
[2020-11-21] MEDS: Fentanyl CADD 100 ML IV SCH ×2 (04:13→18:53)
[2020-11-21] MEDS: Sodium Chloride 0.45% 1,000 ML IV SCH ×2 (04:14→20:54)
[2020-11-21] MEDS: HumaLOG 300 UNITS/3 ML VIAL SC PRN ×4 (04:14→21:29)
[2020-11-21 04:20] LABS: Anion Gap 16 mmol/L (10-20); BUN (Urea Nitrogen) 59 mg/dL (8.4-25.7); Calc. Creatinine Clearance 61 mL/min (70-130); Calcium 7.5 mg/dL (7.8-10.44); Carbon Dioxide 19 mmol/L (23-31); Chloride 104 mmol/L (98-107); Glucose 170 mg/dL (83-110); Potassium 5.7 mmol/L (3.5-5.1); Sodium 133 mmol/L (136-145)
[2020-11-21] MEDS: Propofol 1,000 MG/100 ML VIAL IV PRN ×2 (05:34→16:00)
[2020-11-21] MEDS: NPH, Human Insulin Isophane 300 UNIT/3 ML VIAL SC SCH ×2 (08:27→15:45)
--- NOTE | 2020-11-21 08:27 | RAD ---
EXAM: Portable chest PROVIDED CLINICAL HISTORY: Respiratory insufficiency COMPARISON: 11/20/2020 FINDINGS: Significant interval change with respect to the prior examination is not apparent. The prone nature o f the examination is not sensitive for detection of pleural fluid or pneumothorax. IMPRESSION: As above.
[2020-11-21] MEDS: Enoxaparin Sodium 30 MG/0.3 ML SYRINGE SC SCH ×2 (08:28→20:54)
[2020-11-21] MEDS: Pantoprazole 40 MG VIAL IVP SCH ×2 (08:28→20:54)
[2020-11-21] MEDS: Dexamethasone 4 mg/ml Vial SLOW IVP SCH (08:28)
[2020-11-21] MEDS: Atorvastatin Calcium 40 MG TAB PO SCH (08:29)
[2020-11-21] MEDS: Ascorbic Acid 500 mg Chewable Tablet PO SCH (08:29)
[2020-11-21] MEDS: Aspirin Chewable 81 MG TAB PO SCH (08:29)
[2020-11-21] MEDS: Furosemide 40 MG/4 ML VIAL ONE (08:35)
[2020-11-21] MEDS ORDERED: Furosemide 100 MG/10 ML VIAL SLOW IVP SCH (09:00)
[2020-11-21 13:55] LABS: Potassium 4.8 mmol/L (3.5-5.1)
[2020-11-21 15:40] LABS: Carbon Dioxide 24 mmol/L (23-31); Glucose 200 mg/dL (83-110)
[2020-11-21] MEDS ORDERED: Sterile Water 10 ML ONE (15:50)
[2020-11-21] MEDS: Lorazepam 2 MG/ML VIAL SLOW IVP PRN (15:51)
[2020-11-21 15:52] LABS: Anion Gap 15 mmol/L (10-20); BUN (Urea Nitrogen) 55 mg/dL (8.4-25.7); Calc. Creatinine Clearance 70 mL/min (70-130); Calcium 7.6 mg/dL (7.8-10.44); Chloride 104 mmol/L (98-107); Sodium 135 mmol/L (136-145)
[2020-11-21] MEDS: Sterile Water 10 ML VIAL IVP PRN (15:52)
--- NOTE | 2020-11-21 16:04 | PRG ---
DATE OF SERVICE: 11/21/2020 SUBJECTIVE: Von Huizar remains mechanically ventilated. He is still prone and will be flipped back later today. OBJECTIVE: VITAL SIGNS: Blood pressure 153/62, heart rate 76, and FiO2 is 60%. LUNGS: He has equal breath sounds. HEART: Regular rhythm. ABDOMEN: Soft. LABORATORY DATA: Chest x-ray shows no pneumothorax. IMPRESSION: 1. COVID pneumonia, requiring intubation. 2. Small apical pneumothorax on the left, not visible on the plain film, but visible on the CT. 3. Borderline hyperkalemia with potassium of 5.7 this morning, repeat at 1 o'clock was 4.8. He received Lasix. His Kayexalate was put on hold because he is in the prone position. Diarrhea in this position will be extremely difficult for the patient and the nurse will recheck his lab again in the morning. His creatinine is 1.17. Feeds with potassium in them will be avoided. Critical care time 30 min. Job ID: [id number] MTDD
--- NOTE | 2020-11-21 16:30 | PDOC.HOSPP ---
- Subjective Encounter Date: 11/21/20 Encounter Time: 07:45 Subjective: on vent, sedated, in prone position - Objective Vital Signs & Weight: Vital Signs (12 hours) Temp Pulse Resp BP Pulse Ox 11/21/20 14:42 76 153/62 H 11/21/20 14:00 20 11/21/20 13:00 98.1 F 11/21/20 12:00 20 11/21/20 10:41 76 143/60 H 11/21/20 10:00 20 11/21/20 08:00 20 99 11/21/20 07:00 98.1 F 11/21/20 06:54 75 122/64 11/21/20 06:00 20 Weight Admit Weight 174 lb Weight 174 lb 9.698 oz Most Recent Monitor Data Heart Rate from ECG 77 NIBP 125/57 NIBP BP-Mean 79 Respiration from ECG 20 SpO2 97 I&O: 11/20/20 11/21/20 11/22/20 06:59 06:59 06:59 Intake Total 1058 2465.0 159 Output Total 965 1175 1525 Balance 93 1290.0 -1366 Result Diagrams: 11/21/20 03:38 11/21/20 15:14 Additional Labs: Accuchecks 11/21/20 11/21/20 11/21/20 15:12 10:25 03:38 POC Glucose 207 H 169 H 165 H 11/20/20 11/20/20 20:22 16:39 POC Glucose 186 H 202 H Hospitalist ROS - Medication Medications: Active Medications Generic Name Dose Route Start Last Admin Trade Name Mahnaz PRN Reason Stop Dose Admin Acetaminophen 650 mg 11/12/20 18:02 11/18/20 01:02 Acetaminophen 325 Mg Tab PO 650 mg Q4H PRN Administration Headache/Fever/Mild Pain (1-3) Ascorbic Acid 1,000 mg 11/13/20 09:00 11/21/20 08:29 Ascorbic Acid 500 Mg Chewable Tablet PO 1,000 mg DAILY DENISE Administration Aspirin 81 mg 11/14/20 09:00 11/21/20 08:29 Aspirin Chewable 81 Mg Tab PO 81 mg DAILY DENISE Administration Atorvastatin Calcium 40 mg 11/14/20 09:00 11/21/20 08:29 Atorvastatin Calcium 40 Mg Tab PO 40 mg DAILY DENISE Administration Dexamethasone 6 mg 11/13/20 09:00 11/21/20 08:28 Dexamethasone 4 Mg/Ml Vial SLOW IVP 6 mg DAILY DENISE Administration Enoxaparin Sodium 30 mg 11/21/20 09:00 11/21/20 08:28 Enoxaparin Sodium 30 Mg/0.3 Ml Syringe SC 30 mg 0900,2100 DENISE Administration Sodium Chloride 1,000 mls @ 70 mls/hr 11/19/20 09:45 11/21/20 04:14 1/2 Normal Saline IV Not Given .[id number] DENISE Fentanyl 100 mls @ 0 mls/hr 11/19/20 18:45 11/21/20 04:13 Fentanyl Cadd IV 12/19/20 18:45 100 mls INF DENISE Administration Protocol Per Protocol Insulin Human Lispro 0 units 11/12/20 18:13 11/21/20 15:45 Humalog 300 Units/3 Ml Vial SC 3 unit .MILD SLIDING SCALE PRN Administration Mild Correctional Scale Insulin Human Lispro 0 units 11/12/20 18:13 11/18/20 20:41 Humalog 300 Units/3 Ml Vial SC 4 unit .BEDTIME SLIDING SC PRN Administration Bedtime Correctional Scale Insulin Human NPH 10 unit 11/18/20 16:30 11/21/20 15:45 Nph, Human Insulin Isophane 300 Unit/3 Ml Vial SC 10 unit BID-AC DENISE Administration Lorazepam 2 mg 11/19/20 18:45 11/21/20 15:51 Lorazepam 2 Mg/Ml Vial SLOW IVP 12/19/20 18:45 2 mg Q1H PRN Administration Breakthrough agitation Pantoprazole Sodium 40 mg 11/19/20 09:00 11/21/20 08:28 Pantoprazole 40 Mg Vial IVP 40 mg Q12HR DENISE Administration Propofol 1,000 mg 11/19/20 18:45 11/21/20 16:00 Propofol 1,000 Mg/100 Ml Vial IV 12/19/20 18:45 1,000 mg INF PRN Administration TO ACHIEVE GOAL RASS Protocol Sterile Water 10 ml 11/20/20 01:48 11/21/20 15:52 Sterile Water 10 Ml Vial IVP 10 ml Q1H PRN Administration NEEDED FOR RECONSTITUTION Vecuronium [place] 10 mg 11/20/20 01:48 11/21/20 15:51 Vecuronium 10 Mg Vial IV 10 mg Q1H PRN Administration SPASM Hospitalist Exam Vitals: Vital Signs (12 hours) Temp Pulse Resp BP Pulse Ox 11/21/20 14:42 76 153/62 H 11/21/20 14:00 20 11/21/20 13:00 98.1 F 11/21/20 12:00 20 11/21/20 10:41 76 143/60 H 11/21/20 10:00 20 11/21/20 08:00 20 99 11/21/20 07:00 98.1 F 11/21/20 06:54 75 122/64 11/21/20 06:00 20 Weight Admit Weight 174 lb Weight 174 lb 9.698 oz Most Recent Monitor Data Heart Rate from ECG 77 NIBP 125/57 NIBP BP-Mean 79 Respiration from ECG 20 SpO2 97 Eye: anicteric sclera ENT: no oropharyngeal lesions Neck: supple, no JVD Heart: RRR, no murmur Respiratory: no wheezes, rales, rhonchi Gastrointestinal: soft, non-tender, non-distended, normal bowel sounds Extremities: no cyanosis, no edema Neurological: cranial nerve grossly intact, no focal deficits Hosp A/P (1) Acute respiratory failure with hypoxia Code(s): J96.01 - ACUTE RESPIRATORY FAILURE WITH HYPOXIA Status: Acute (2) Pneumonia due to COVID-19 virus Code(s): U07.1 - COVID-19; J12.82 - PNEUMONIA DUE TO CORONAVIRUS DISEASE 2019 Status: Acute (3) CAD (coronary artery disease) Code(s): I25.10 - ATHSCL HEART DISEASE OF [place] CORONARY ARTERY W/O ANG PCTRS Status: Chronic Qualifiers: Coronary Disease-Associated Artery/Lesion type: [place] artery [place] vs. 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 (5) GERD (gastroesophageal reflux disease) Code(s): K21.9 - GASTRO-ESOPHAGEAL REFLUX DISEASE WITHOUT ESOPHAGITIS Status: Chronic Qualifiers: Esophagitis presence: esophagitis presence not specified Qualified Code(s): K21.9 - Gastro-esophageal reflux disease without esophagitis (6) Hyperlipidemia Code(s): E78.5 - HYPERLIPIDEMIA, UNSPECIFIED Status: Chronic Qualifiers: Hyperlipidemia type: unspecified Qualified Code(s): E78.5 - Hyperlipidemia, unspecified (7) Hypertension Code(s): I10 - ESSENTIAL (PRIMARY) HYPERTENSION Status: Chronic Qualifiers: Hypertension type: essential hypertension Qualified Code(s): I10 - Essential (primary) hypertension (8) Physical deconditioning Code(s): R53.81 - OTHER [place] Status: Acute (9) Pneumothorax Code(s): J93.9 - PNEUMOTHORAX, UNSPECIFIED Status: Acute Qualifiers: Pneumothorax type: spontaneous, secondary Qualified Code(s): J93.12 - Secondary spontaneous pneumothorax - Plan weaning likely from am as tolerated, is in prone position on vent to be switched over to supine today, no pneumothorax seen on portable cxr. is on dexamethasone, alb inhaler, dulera inh, finished full course of remdesivir. continue asp and nph lower dose d/w Mrs.Byrd Fany / (daughter)over phone and gave full updates 11/18, 11/19, 11/20, 11/21. 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 prognosis guarded
[2020-11-22 02:21] VITALS: BP 123/58
[2020-11-22] MEDS: Propofol 1,000 MG/100 ML VIAL IV PRN ×3 (02:31→22:12)
[2020-11-22 04:08] LABS: Eosinophils 2 % (0-10); Hemoglobin 12.6 g/dL (14.0-18.0); Lymphocytes 6 % (21-51); MDiff Complete? YES; Mean Corpuscular HGB CONC 33.4 g/dL (32.0-36.0); Mean Corpuscular Hemoglobin 32.6 pg (27.0-31.0); Mean Corpuscular Volume 97.8 fL (78.0-98.0); Monocytes 13 % (0-10); Neutrophil 79 % (42-75); Platelet Count 426 thou/uL (130-400); Platelet Morphology Comment Appears Increased; RBC Distribution Width 11.5 % (11.5-14.5); Red Blood Cell (RBC) Count 3.85 mill/uL (4.70-6.10); White Blood Cell (WBC) Count 14.3 thou/uL (4.8-10.8)
[2020-11-22 04:26] LABS: Anion Gap 18 mmol/L (10-20); BUN (Urea Nitrogen) 67 mg/dL (8.4-25.7); Calc. Creatinine Clearance 56 mL/min (70-130); Calcium 7.8 mg/dL (7.8-10.44); Carbon Dioxide 19 mmol/L (23-31); Chloride 103 mmol/L (98-107); Glucose 149 mg/dL (83-110); Potassium 4.9 mmol/L (3.5-5.1); Sodium 135 mmol/L (136-145)
[2020-11-22] MEDS: Lorazepam 2 MG/ML VIAL SLOW IVP PRN ×3 (07:40→17:25)
[2020-11-22] MEDS: Dexamethasone 4 mg/ml Vial SLOW IVP SCH (08:00)
[2020-11-22] MEDS: NPH, Human Insulin Isophane 300 UNIT/3 ML VIAL SC SCH ×2 (08:00→17:30)
[2020-11-22] MEDS: Atorvastatin Calcium 40 MG TAB PO SCH (08:01)
[2020-11-22] MEDS: Enoxaparin Sodium 30 MG/0.3 ML SYRINGE SC SCH ×2 (08:01→20:12)
[2020-11-22] MEDS: Ascorbic Acid 500 mg Chewable Tablet PO SCH (08:01)
[2020-11-22] MEDS: Aspirin Chewable 81 MG TAB PO SCH (08:01)
[2020-11-22] MEDS: Pantoprazole 40 MG VIAL IVP SCH ×2 (08:01→20:12)
[2020-11-22] MEDS: Sodium Chloride 0.45% 1,000 ML IV SCH ×2 (08:03→22:02)
--- NOTE | 2020-11-22 09:18 | RAD ---
CHEST 1 VIEW: Date: 11/22/2020 INDICATION: History of intubation. COMPARISON: Prior exam dated 11/21/2020. IMPRESSION: Patient is intubated with gastric catheter placement. There is bilateral air space disease. There is a left-sided pneumothorax seen along the left basilar region. There is subcutaneous emphysema involvi ng the neck base. There is extensive pneumomediastinum. The left-sided pneumothorax and pneumomediast inum is likely similar to prior CT from 11/19/2020. POS: BH
[2020-11-22] MEDS: HumaLOG 300 UNITS/3 ML VIAL SC PRN ×2 (13:45→23:36)
[2020-11-22] MEDS: Fentanyl CADD 100 ML IV SCH (14:03)
--- NOTE | 2020-11-22 14:32 | PRG ---
DATE OF SERVICE: 11/22/2020 SUBJECTIVE: Von Huizar remains mechanically ventilated. OBJECTIVE: VITAL SIGNS: He is afebrile. Respiratory rate is 20, FIO2 is at 60, oximetries in the low 90s, blood pressure 153/58. LUNGS: Remarkable for equal breath sounds. HEART: Regular rhythm. ABDOMEN: Soft. EXTREMITIES: Without edema. LABORATORY DATA: White count 14.3, hemoglobin 12.6, platelets 426. Sodium , potassium 4.9, chloride 103, bicarb 19, BUN 67, creatinine 1.28. Chest x-ray shows subcu air. He has a very small pneumothorax on the left that is visible on today's film. IMPRESSION: 1. COVID pneumonia. 2. Spontaneous pneumothorax. 3. Pleural calcifications. 4. Hyperkalemia, yesterday, normal today. PLAN: Continue supportive care. Daily x-rays. Critical care time 30 min. Job ID: [id number] MTDD
[2020-11-22 17:09] VITALS: BMI 26.5
--- NOTE | 2020-11-22 18:01 | PDOC.HOSPP ---
- Subjective Encounter Date: 11/22/20 Encounter Time: 08:20 Subjective: is on vent, sedated - Objective Vital Signs & Weight: Vital Signs (12 hours) Temp Pulse Resp Pulse Ox 11/22/20 16:00 98.5 F 21 H 11/22/20 14:13 83 11/22/20 14:00 21 H 11/22/20 12:00 98.7 F 20 11/22/20 10:36 82 11/22/20 10:00 20 11/22/20 08:00 98.5 F 20 88 L 11/22/20 07:14 83 11/22/20 06:00 20 Weight Admit Weight 174 lb Weight 169 lb 8.568 oz Most Recent Monitor Data Heart Rate from ECG 78 NIBP 136/58 NIBP BP-Mean 84 Respiration from ECG 20 SpO2 89 I&O: 11/21/20 11/22/20 11/23/20 06:59 06:59 06:59 Intake Total 2465.0 2350.0 Output Total 1175 2425 620 Balance 1290.0 -75.0 -620 Result Diagrams: 11/22/20 03:28 11/22/20 03:28 Additional Labs: Accuchecks 11/21/20 21:02 POC Glucose 198 H Hospitalist ROS - Medication Medications: Active Medications Generic Name Dose Route Start Last Admin Trade Name Freq PRN Reason Stop Dose Admin Acetaminophen 650 mg 11/12/20 18:02 11/18/20 01:02 Acetaminophen 325 Mg Tab PO 650 mg Q4H PRN Administration Headache/Fever/Mild Pain (1-3) Ascorbic Acid 1,000 mg 11/13/20 09:00 11/22/20 08:01 Ascorbic Acid 500 Mg Chewable Tablet PO 1,000 mg DAILY DENISE Administration Aspirin 81 mg 11/14/20 09:00 11/22/20 08:01 Aspirin Chewable 81 Mg Tab PO 81 mg DAILY DENISE Administration Atorvastatin Calcium 40 mg 11/14/20 09:00 11/22/20 08:01 Atorvastatin Calcium 40 Mg Tab PO 40 mg DAILY DENISE Administration Dexamethasone 6 mg 11/13/20 09:00 11/22/20 08:00 Dexamethasone 4 Mg/Ml Vial SLOW IVP 6 mg DAILY DENISE Administration Enoxaparin Sodium 30 mg 11/21/20 09:00 11/22/20 08:01 Enoxaparin Sodium 30 Mg/0.3 Ml Syringe SC 30 mg 0900,2100 DENISE Administration Sodium Chloride 1,000 mls @ 70 mls/hr 11/19/20 09:45 11/22/20 08:03 1/2 Normal Saline IV 1,000 mls .[id number] DENISE Administration Fentanyl 100 mls @ 0 mls/hr 11/19/20 18:45 11/22/20 14:03 Fentanyl Cadd IV 12/19/20 18:45 100 mls INF DENISE Administration Protocol Per Protocol Insulin Human Lispro 0 units 11/12/20 18:13 11/22/20 13:45 Humalog 300 Units/3 Ml Vial SC 2 unit .MILD SLIDING SCALE PRN Administration Mild Correctional Scale Insulin Human Lispro 0 units 11/12/20 18:13 11/18/20 20:41 Humalog 300 Units/3 Ml Vial SC 4 unit .BEDTIME SLIDING SC PRN Administration Bedtime Correctional Scale Insulin Human NPH 10 unit 11/18/20 16:30 11/22/20 17:30 Nph, Human Insulin Isophane 300 Unit/3 Ml Vial SC 10 unit BID-AC DENISE Administration Lorazepam 2 mg 11/19/20 18:45 11/22/20 17:25 Lorazepam 2 Mg/Ml Vial SLOW IVP 12/19/20 18:45 2 mg Q1H PRN Administration Breakthrough agitation Pantoprazole Sodium 40 mg 11/19/20 09:00 11/22/20 08:01 Pantoprazole 40 Mg Vial IVP 40 mg Q12HR DENISE Administration Propofol 1,000 mg 11/19/20 18:45 11/22/20 07:48 Propofol 1,000 Mg/100 Ml Vial IV 12/19/20 18:45 1,000 mg INF PRN Administration TO ACHIEVE GOAL RASS Protocol Sterile Water 10 ml 11/20/20 01:48 11/21/20 15:52 Sterile Water 10 Ml Vial IVP 10 ml Q1H PRN Administration NEEDED FOR RECONSTITUTION Vecuronium [place] 10 mg 11/20/20 01:48 11/21/20 15:51 Vecuronium 10 Mg Vial IV 10 mg Q1H PRN Administration [facility] Hospitalist Exam Vitals: Vital Signs (12 hours) Temp Pulse Resp Pulse Ox 11/22/20 16:00 98.5 F 21 H 11/22/20 14:13 83 11/22/20 14:00 21 H 11/22/20 12:00 98.7 F 20 11/22/20 10:36 82 11/22/20 10:00 20 11/22/20 08:00 98.5 F 20 88 L 11/22/20 07:14 83 11/22/20 06:00 20 Weight Admit Weight 174 lb Weight 169 lb 8.568 oz Most Recent Monitor Data Heart Rate from ECG 78 NIBP 136/58 NIBP BP-Mean 84 Respiration from ECG 20 SpO2 89 General Appearance: ill appearing Eye: PERRL, anicteric sclera ENT: no oropharyngeal lesions, moist mucosa Neck: no JVD Neck - other findings: has subcut emphysema in left lat neck and ant chest Heart: RRR, no murmur Respiratory: no wheezes, no rales, rhonchi Gastrointestinal: soft, non-tender, non-distended, normal bowel sounds Extremities: no cyanosis, no edema Neurological: cranial nerve grossly intact, no focal deficits Hosp A/P (1) Acute respiratory failure with hypoxia Code(s): J96.01 - ACUTE RESPIRATORY FAILURE WITH HYPOXIA Status: Acute (2) Pneumonia due to COVID-19 virus Code(s): U07.1 - COVID-19; J12.82 - PNEUMONIA DUE TO CORONAVIRUS DISEASE 2019 Status: Acute (3) CAD (coronary artery disease) Code(s): I25.10 - ATHSCL HEART DISEASE OF [place] CORONARY ARTERY W/O ANG PCTRS Status: Chronic Qualifiers: Coronary Disease-Associated Artery/Lesion type: [place] artery [place] vs. transplanted heart: [place] heart Associated angina: without angina Qualified Code(s): I25.10 - Atherosclerotic heart disease of [place] coronary artery without angina pectoris (4) Diabetes mellitus Code(s): E11.9 - TYPE 2 DIABETES MELLITUS WITHOUT COMPLICATIONS Status: Chronic Qualifiers: Diabetes mellitus type: type 2 Diabetes mellitus technician terminal and repeater insulin use: with technician terminal and repeater use (5) GERD (gastroesophageal reflux disease) Code(s): K21.9 - GASTRO-ESOPHAGEAL REFLUX DISEASE WITHOUT ESOPHAGITIS Status: Chronic Qualifiers: Esophagitis presence: esophagitis presence not specified Qualified Code(s): K21.9 - Gastro-esophageal reflux disease without esophagitis (6) Hyperlipidemia Code(s): E78.5 - HYPERLIPIDEMIA, UNSPECIFIED Status: Chronic Qualifiers: Hyperlipidemia type: unspecified Qualified Code(s): E78.5 - Hyperlipidemia, unspecified (7) Hypertension Code(s): I10 - ESSENTIAL (PRIMARY) HYPERTENSION Status: Chronic Qualifiers: Hypertension type: essential hypertension Qualified Code(s): I10 - Essential (primary) hypertension (8) Physical deconditioning Code(s): R53.81 - OTHER MALAISE Status: Acute (9) Pneumothorax Code(s): J93.9 - PNEUMOTHORAX, UNSPECIFIED Status: Acute Qualifiers: Pneumothorax type: spontaneous, secondary Qualified Code(s): J93.12 - Secondary spontaneous pneumothorax - Plan weaning per pulm advice, has small pneumothorax seen on left side in cxr today and clinically has subcut emphysema in left lat neck and ant chest wall. is on dexamethasone, alb inhaler, dulera inh, finished full course of remdesivir. continue asp and nph lower dose d/w Mrs.Byrd Fany / (daughter)over phone and gave full updates 11/18, 11/19, 11/20, 11/21, 11/22. 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 prognosis guarded
[2020-11-22] MEDS: Vecuronium 10 MG VIAL IV PRN ×3 (19:05→22:02)
[2020-11-23] MEDS: Vecuronium 10 MG VIAL IV PRN ×5 (00:48→19:57)
[2020-11-23 04:15] LABS: Anion Gap 14 mmol/L (10-20); BUN (Urea Nitrogen) 74 mg/dL (8.4-25.7); Calc. Creatinine Clearance 48 mL/min (70-130); Calcium 7.5 mg/dL (7.8-10.44); Carbon Dioxide 22 mmol/L (23-31); Chloride 103 mmol/L (98-107); Glucose 260 mg/dL (83-110); Sodium 134 mmol/L (136-145)
[2020-11-23 04:34] LABS: Band 20 % (5-11); Hemoglobin 12.2 g/dL (14.0-18.0); Hypochromia SLIGHT = 6-15 cells (100X) (0-5/hpf); Lymphocytes 3 % (21-51); MDiff Complete? YES; Mean Corpuscular HGB CONC 31.4 g/dL (32.0-36.0); Mean Corpuscular Hemoglobin 30.7 pg (27.0-31.0); Mean Corpuscular Volume 97.6 fL (78.0-98.0); Monocytes 15 % (0-10); Neutrophil 62 % (42-75); Platelet Count 366 thou/uL (130-400); Platelet Morphology Comment Appears Adequate; RBC Distribution Width 11.6 % (11.5-14.5); Red Blood Cell (RBC) Count 3.97 mill/uL (4.70-6.10)
[2020-11-23] MEDS: HumaLOG 300 UNITS/3 ML VIAL SC PRN ×2 (05:53→22:46)
[2020-11-23] MEDS: Propofol 1,000 MG/100 ML VIAL IV PRN ×2 (06:06→08:50)
[2020-11-23] MEDS: NPH, Human Insulin Isophane 300 UNIT/3 ML VIAL SC SCH ×2 (07:48→17:00)
[2020-11-23] MEDS: Lorazepam 2 MG/ML VIAL SLOW IVP PRN ×4 (07:48→22:26)
--- NOTE | 2020-11-23 08:01 | RAD ---
Chest AP view INDICATION: 75-year-old male with intubation COMPARISON: November 22, 2020 FINDINGS: Lungs: Bilateral airspace disease persists Cardiac silhouette: The cardiomediastinal silhouette appears within normal limits. Pulmonary vasculature: Normal Pleural spaces: Left sided pneumothorax is stable. Pneumomediastinum is similar. Subcutaneous emphys [place] of the neck base is similar. Upper abdomen: No abnormality seen. Osseous structures: No acute osseous abnormality. Additional findings: Patient remains intubated with gastric catheter placement. Tube positioning is unchanged. IMPRESSION: Stable left-sided pneumothorax and extensive pneumomediastinum. Subcutaneous emphysema of the neck ba se is similar. Bilateral lower lobe airspace disease is stable.
[2020-11-23] MEDS ORDERED: Furosemide 40 MG/4 ML VIAL IVP ONE (08:22)
[2020-11-23] MEDS: Enoxaparin Sodium 30 MG/0.3 ML SYRINGE SC SCH ×2 (08:51→19:58)
[2020-11-23] MEDS: Pantoprazole 40 MG VIAL IVP SCH ×2 (08:52→19:57)
[2020-11-23] MEDS: Ascorbic Acid 500 mg Chewable Tablet PO SCH (08:52)
[2020-11-23] MEDS: Atorvastatin Calcium 40 MG TAB PO SCH (08:52)
[2020-11-23] MEDS: Dexamethasone 4 mg/ml Vial SLOW IVP SCH (08:52)
[2020-11-23] MEDS: Aspirin Chewable 81 MG TAB PO SCH (08:53)
[2020-11-23] MEDS: Fentanyl CADD 100 ML IV SCH (10:46)
--- NOTE | 2020-11-23 13:58 | RAD ---
Chest AP view INDICATION: Pneumothorax COMPARISON: Prior examination dated November 15, 2020 at 5:49 AM FINDINGS: Lungs: Prominent airspace disease of both lower lobes persists Cardiac silhouette: The cardiomediastinal silhouette appears within normal limits. Pulmonary vasculature: Normal Pleural spaces: The left-sided [id number]-[id number] sized pneumothorax persists. Extensive pneumomediast inum and surrounding chest wall emphysema is similar. Upper abdomen: No abnormality seen. Osseous structures: No acute osseous abnormality. Additional findings: Patient remains intubated with gastric catheter placement. IMPRESSION: Stable left-sided pneumothorax with extensive pneumomediastinum and surrounding chest wall emphysema. Stable bilateral lower lobe pneumonia.
[2020-11-23] MEDS: Meropenem 2 GM, Admixture Fee 1 EACH in Sodium Chloride 0.9% 100 ML IVPB SCH (15:55)
--- NOTE | 2020-11-23 16:09 | PDOC.HOSPP ---
- Subjective Encounter Date: 11/23/20 Encounter Time: 08:40 Subjective: sedated, on vent - Objective Vital Signs & Weight: Vital Signs (12 hours) Temp Pulse Pulse Ox 11/23/20 14:13 86 11/23/20 12:00 98.3 F 11/23/20 10:30 94 11/23/20 08:00 98.4 F 87 L 11/23/20 07:38 85 Weight Admit Weight 174 lb Weight 183 lb 10.321 oz Most Recent Monitor Data Heart Rate from ECG 84 NIBP 91/50 NIBP BP-Mean 63 Respiration from ECG 20 SpO2 85 I&O: 11/22/20 11/23/20 11/24/20 06:59 06:59 06:59 Intake Total 2350.0 2132.1 Output Total 2425 1320 1060 Balance -75.0 812.1 -1060 Result Diagrams: 11/23/20 03:25 11/23/20 03:25 Additional Labs: Accuchecks 11/23/20 11/23/20 11/22/20 10:05 05:44 23:33 POC Glucose 313 H 248 H 248 H 11/22/20 11/22/20 17:37 13:44 POC Glucose 180 H 185 H Hospitalist ROS - Medication Medications: Active Medications Generic Name Dose Route Start Last Admin Trade Name Freq PRN Reason Stop Dose Admin Acetaminophen 650 mg 11/12/20 18:02 11/18/20 01:02 Acetaminophen 325 Mg Tab PO 650 mg Q4H PRN Administration Headache/Fever/Mild Pain (1-3) Ascorbic Acid 1,000 mg 11/13/20 09:00 11/23/20 08:52 Ascorbic Acid 500 Mg Chewable Tablet PO 1,000 mg DAILY DEINSE Administration Aspirin 81 mg 11/14/20 09:00 11/23/20 08:53 Aspirin Chewable 81 Mg Tab PO 81 mg DAILY DENISE Administration Atorvastatin Calcium 40 mg 11/14/20 09:00 11/23/20 08:52 Atorvastatin Calcium 40 Mg Tab PO 40 mg DAILY DENISE Administration Dexamethasone 6 mg 11/13/20 09:00 11/23/20 08:52 Dexamethasone 4 Mg/Ml Vial SLOW IVP 6 mg DAILY DENISE Administration Enoxaparin Sodium 30 mg 11/21/20 09:00 11/23/20 08:51 Enoxaparin Sodium 30 Mg/0.3 Ml Syringe SC 30 mg 0900,2100 DENISE Administration Sodium Chloride 1,000 mls @ 70 mls/hr 11/19/20 09:45 11/22/20 22:02 1/2 Normal Saline IV 1,000 mls .[id number] DENISE Administration Fentanyl 100 mls @ 0 mls/hr 11/19/20 18:45 11/23/20 10:46 Fentanyl Cadd IV 12/19/20 18:45 100 mls INF DENISE Administration Protocol Per Protocol Insulin Human Lispro 0 units 11/12/20 18:13 11/23/20 05:53 Humalog 300 Units/3 Ml Vial SC 3 unit .MILD SLIDING SCALE PRN Administration Mild Correctional Scale Insulin Human Lispro 0 units 11/12/20 18:13 11/18/20 20:41 Humalog 300 Units/3 Ml Vial SC 4 unit .BEDTIME SLIDING SC PRN Administration Bedtime Correctional Scale Insulin Human NPH 10 unit 11/18/20 16:30 11/23/20 07:48 Nph, Human Insulin Isophane 300 Unit/3 Ml Vial SC 10 unit BID-AC DENISE Administration Lorazepam 2 mg 11/19/20 18:45 11/23/20 10:45 Lorazepam 2 Mg/Ml Vial SLOW IVP 12/19/20 18:45 2 mg Q1H PRN Administration Breakthrough agitation Pantoprazole Sodium 40 mg 11/19/20 09:00 11/23/20 08:52 Pantoprazole 40 Mg Vial IVP 40 mg Q12HR DENISE Administration Propofol 1,000 mg 11/19/20 18:45 11/23/20 08:50 Propofol 1,000 Mg/100 Ml Vial IV 12/19/20 18:45 1,000 mg INF PRN Administration TO ACHIEVE GOAL RASS Protocol Sterile Water 10 ml 11/20/20 01:48 11/21/20 15:52 Sterile Water 10 Ml Vial IVP 10 ml Q1H PRN Administration NEEDED FOR RECONSTITUTION Vecuronium [place] 10 mg 11/20/20 01:48 11/23/20 10:46 Vecuronium 10 Mg Vial IV 10 mg Q1H PRN Administration [facility] Hospitalist Exam Vitals: Vital Signs (12 hours) Temp Pulse Pulse Ox 11/23/20 14:13 86 11/23/20 12:00 98.3 F 11/23/20 10:30 94 11/23/20 08:00 98.4 F 87 L 11/23/20 07:38 85 Weight Admit Weight 174 lb Weight 183 lb 10.321 oz Most Recent Monitor Data Heart Rate from ECG 84 NIBP 91/50 NIBP BP-Mean 63 Respiration from ECG 20 SpO2 85 General Appearance: ill appearing Eye: PERRL, anicteric sclera ENT: no oropharyngeal lesions, dry oral mucosa Neck: supple, no JVD Heart: RRR, no murmur Respiratory: no wheezes, rales, rhonchi Gastrointestinal: soft, non-tender, non-distended, normal bowel sounds Extremities: no cyanosis, no edema Neurological: cranial nerve grossly intact, no focal deficits Hosp A/P (1) Acute respiratory failure with hypoxia Code(s): J96.01 - ACUTE RESPIRATORY FAILURE WITH HYPOXIA Status: Acute (2) Pneumonia due to COVID-19 virus Code(s): U07.1 - COVID-19; J12.82 - PNEUMONIA DUE TO CORONAVIRUS DISEASE 2019 Status: Acute (3) CAD (coronary artery disease) Code(s): I25.10 - ATHSCL HEART DISEASE OF [place] CORONARY ARTERY W/O ANG PCTRS Status: Chronic Qualifiers: Coronary Disease-Associated Artery/Lesion type: [place] artery [place] vs. transplanted heart: [place] heart Associated angina: without angina Qualified Code(s): I25.10 - Atherosclerotic heart disease of [place] coronary artery without angina pectoris (4) Diabetes mellitus Code(s): E11.9 - TYPE 2 DIABETES MELLITUS WITHOUT COMPLICATIONS Status: Chronic Qualifiers: Diabetes mellitus type: type 2 Diabetes mellitus chcf insulin use: with terminal superintendent use (5) GERD (gastroesophageal reflux disease) Code(s): K21.9 - GASTRO-ESOPHAGEAL REFLUX DISEASE WITHOUT ESOPHAGITIS Status: Chronic Qualifiers: Esophagitis presence: esophagitis presence not specified Qualified Code(s): K21.9 - Gastro-esophageal reflux disease without esophagitis (6) Hyperlipidemia Code(s): E78.5 - HYPERLIPIDEMIA, UNSPECIFIED Status: Chronic Qualifiers: Hyperlipidemia type: unspecified Qualified Code(s): E78.5 - Hyperlipidemia, unspecified (7) Hypertension Code(s): I10 - ESSENTIAL (PRIMARY) HYPERTENSION Status: Chronic Qualifiers: Hypertension type: essential hypertension Qualified Code(s): I10 - Essential (primary) hypertension (8) Physical deconditioning Code(s): R53.81 - OTHER MALAISE Status: Acute (9) Pneumothorax Code(s): J93.9 - PNEUMOTHORAX, UNSPECIFIED Status: Acute Qualifiers: Pneumothorax type: spontaneous, secondary Qualified Code(s): J93.12 - Secondary spontaneous pneumothorax - Plan has small pneumothorax seen on left side and clinically has subcut emphysema in left lat neck and ant chest wall, fio2 is maxed out on vent, not sure if he will benefit from a chest tube to see if oxygenation improves, await pulm advice. is on dexamethasone, alb inhaler, dulera inh, finished full course of remdesivir. continue asp and nph lower dose d/w Mrs.Byrd Fany / (daughter)over phone and gave full updates 11/18, 11/19, 11/20, 11/21, 11/22, 11/23. 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 did not want chest compressions done. She may opt for withdrawal of care if his prognosis is poor, she will make a decision after talking to . prognosis guarded
[2020-11-23] MEDS ORDERED: Sodium Chloride 0.9% 1,000 ML IV SCH (17:15)
--- NOTE | 2020-11-23 22:08 | PRG ---
DATE OF SERVICE: 11/23/2020 SUBJECTIVE: Mr. Huizar remains mechanically ventilated. He has a marginal gas exchange. He did not tolerate High PEEPs or high or low PEEPs today. His sats for most of the day were in the 80% range, but this afternoon they climbed up to 100%. OBJECTIVE: VITAL SIGNS: Heart rate is 80, respiratory rates in the 20s, blood pressure 92/46. LUNGS: Remarkable for coarse equal breath sounds. HEART: Regular rhythm. ABDOMEN: Soft. Chest x-ray done this morning and this afternoon shows a small inferior pneumothorax. I think his pneumothorax is relatively stable and not contributing to his poor gas exchange. He has fairly a symmetric chest x-ray from an infiltrate standpoint. I would wonder if he does not have a bacterial superinfection. Antibiotics have been broadened. LABORATORY DATA: White count 12, hemoglobin 12.2, platelets 366. Sodium 134, potassium 5, chloride 103, bicarb 22, BUN 74, creatinine 1.4, and glucose 260. IMPRESSION: 1. COVID pneumonia. 2. Acute on chronic kidney disease. 3. Small left pneumothorax. PLAN: Continue supportive care. I had a long meeting with the today who came up to visit him. All the family members who have had COVID him. She wanted him to be a [id number] patient but did want to withdraw support, and I support her decision. We will continue to follow. Critical care time 30 min. Job ID: [id number] MTDD
[2020-11-24] MEDS: Meropenem 2 GM, Admixture Fee 1 EACH in Sodium Chloride 0.9% 100 ML IVPB SCH ×2 (00:22→05:52)
[2020-11-24] MEDS: Lorazepam 2 MG/ML VIAL SLOW IVP PRN ×2 (03:36→05:08)
[2020-11-24] MEDS ORDERED: Sterile Water 10 ML ONE (03:56)
[2020-11-24] MEDS: Vecuronium 10 MG VIAL IV PRN ×2 (04:01→05:53)
[2020-11-24 04:36] LABS: Anion Gap 16 mmol/L (10-20); BUN (Urea Nitrogen) 68 mg/dL (8.4-25.7); Calc. Creatinine Clearance 58 mL/min (70-130); Calcium 7.8 mg/dL (7.8-10.44); Carbon Dioxide 20 mmol/L (23-31); Chloride 106 mmol/L (98-107); Glucose 291 mg/dL (83-110); Potassium 4.8 mmol/L (3.5-5.1); Sodium 137 mmol/L (136-145)
[2020-11-24 05:07] LABS: Band 61 % (5-11); Dohle Bodies SLIGHT; Hemoglobin 11.9 g/dL (14.0-18.0); Lymphocytes 4 % (21-51); MDiff Complete? YES; Mean Corpuscular HGB CONC 32.5 g/dL (32.0-36.0); Mean Corpuscular Hemoglobin 31.9 pg (27.0-31.0); Mean Corpuscular Volume 98.1 fL (78.0-98.0); Mean Platelet Volume 8.7 fL (7.4-10.4); Metamyelocyte 6 % (0-0); Monocytes 3 % (0-10); Neutrophil 26 % (42-75); Platelet Count 265 thou/uL (130-400); RBC Distribution Width 11.6 % (11.5-14.5); Red Blood Cell (RBC) Count 3.74 mill/uL (4.70-6.10); Vacuoles SLIGHT; White Blood Cell (WBC) Count 4.3 thou/uL (4.8-10.8)
[2020-11-24] MEDS: Propofol 1,000 MG/100 ML VIAL IV PRN (05:08)
[2020-11-24] MEDS ORDERED: Norepinephrine 8 MG/0.9% NS 250 ML ONE (05:31)
[2020-11-24] MEDS ORDERED: Diltiazem HCl 125 MG, Admixture Fee 1 EACH in Sodium Chloride 0.9% 100 ML IVPB SCH (05:45)
[2020-11-24] MEDS ORDERED: Norepinephrine 8 MG/0.9% NS 250 ML IVPB SCH (05:45)
[2020-11-24] MEDS: Sterile Water 10 ML VIAL IVP PRN (05:54)
[2020-11-24] MEDS ORDERED: Fentanyl CADD 100 ML ONE (05:59)
[2020-11-24] MEDS: Fentanyl CADD 100 ML IV SCH (06:00)
[2020-11-24] MEDS: HumaLOG 300 UNITS/3 ML VIAL SC PRN (06:09)
--- NOTE | 2020-11-24 08:04 | RAD ---
Chest AP view INDICATION: History of intubation COMPARISON: Prior exam dated November 23, 2020 1:40 PM FINDINGS: Lungs: Bilateral airspace disease predominantly in the lower lobes stable. Cardiac silhouette: The cardiomediastinal silhouette appears within normal limits. Pulmonary vasculature: Normal Pleural spaces: There is new right basilar pneumothorax. The left-sided anterior and apical pneumoth orax is reduced in size. Pneumomediastinum has improved. Cystic changes emphysema involving the neck base persists. Upper abdomen: Gastric catheter is stable Osseous structures: Unchanged Additional findings: ET tube is unchanged. IMPRESSION: New right basilar pneumothorax. Findings called to Collin, the RN caring for this patient, at 8:01 AM o n November 24, 2020. Improving left-sided pneumothorax. Persistent pneumonia. Stable tubes and lines.
[2020-11-24] MEDS ORDERED: Morphine 4 MG/ML VIAL SLOW IVP PRN (08:12)
[2020-11-24 08:31] VITALS: TEMP 98.1
--- NOTE | 2020-11-24 08:38 | PRG ---
DATE OF SERVICE: 11/24/2020 SUBJECTIVE: This patient has developed bilateral pneumothoraces, worse on the right. He has also developed SVT with to diltiazem. I had a conversation with his over the phone. I told her that we could put him in bilateral chest tubes, but I did not think it would change the outcome. She had already been in the frame of mind that she did not want much done and had made him DNAR. She told me that she wanted him to be extubated and kept comfortable and did not want the chest tubes. She did not want to come back to the hospital because she wanted to leave with her memories from yesterday. We will extubate the patient, make him comfortable. I gave him morphine as needed for pain and expect him to succumb very shortly. Job ID: [id number]
--- NOTE | 2020-11-24 17:11 | DIS ---
DATE OF ADMISSION: 11/12/2020 DATE OF DISCHARGE: 11/24/2020 DISCHARGE DISPOSITION: To inpatient hospice. PRIMARY DISCHARGE DIAGNOSES: 1. Acute respiratory failure with hypoxia secondary to COVID-19 pneumonia. 2. Acute kidney injury. 3. Bilateral pneumothorax. 4. Coronary artery disease. 5. Diabetes mellitus type 2. 6. Dyslipidemia. 7. Hypertension. 8. Severe deconditioning. PROCEDURES DONE DURING HOSPITALIZATION: Chest x-ray done on the day of admission showed patchy peripheral and perihilar airspace consolidation, consistent with COVID-[address] chest done on 11/19/2020, showed extensive pneumomediastinum, small right and mild left pneumothoraces. COVID-19 PCR was positive on 11/10/2020. Discharge BUN and creatinine of 68 and 1.29. CRP 6.32 on the , was 12 on admission. H and H 11 and 36, platelet count 265. Had a blood gas with a pH of 7.49 on the 19 of November, pCO2 of 30, pO2 of 45. DISCHARGE MEDICATIONS: Morphine p.r.n. for pain. BRIEF COURSE DURING HOSPITALIZATION: The patient initially got admitted on the with complaints of shortness of breath. He had tested positive for COVID on the . He got exposed to COVID via his daughter when they had gone to [employer] on a family trip on the 08 of November. Initial saturations were 85% and he was placed on 2 L of nasal cannula on admission. The patient progressively required higher oxygen requirements and was later placed on high-flow. He developed bilateral pneumothorax and pneumomediastinum and finally required intubation. He had finished a full course of remdesivir and was on steroids along with albuterol and Dulera inhalers. Despite all supportive measures, the patient continued to deteriorate. He had requirements of 100% FiO2 on the ventilator for the last 48 hours now. The patient has had serial chest x-rays done with small pneumothorax in bilateral chest areas. Final decision was made to place chest tubes. had made him do not attempt to resuscitate on the and was not in favor of pursuing further heroic measures. She wanted to go in for withdrawal of care with comfort measures only. In view of this, [facility] was consulted. He will likely go in for withdrawal of care and further comfort measures via the [facility]. Please note, I have seen and examined the patient on the day of discharge. Job ID: [id number] MTDD
--- NOTE | 2020-11-27 06:48 | PQF ---
CLINICAL DOCUMENTATION CLARIFICATION FORM: Dear : Christina Otero Date / Time: 11/27/20 06:48 Please exercise your independent, professional judgment in responding to the clarification form. Clinical indicators are provided on the bottom of this form for your review Please check appropriate box(es): [ x] Sepsis due to Covid 19 infection [ ] Severe Sepsis due to Covid 19 infection [ ] Septic Shock due to Covid 19 infection [ ] Localized infection without sepsis [ ] Other diagnosis, please specify [ ] Unable to determine In addition, please specify: Present on Admission (POA): [x ] Yes [ ] No [ ] Unable to determine Physician Signature: Date/Time: For continuity of documentation, please document condition throughout progress notes and discharge summary. Thank You. To be completed by CDI/Coding staff for physician review: Present Clinical Indicators - Signs / Symptoms / Labs Results and Location in Medical Record [x] Chest Xray: patchy peripheral and perihilar airspace consolidation Chest Xray 11/12 [x] Acute respiratory failure HP 11/12 [x] PNA due to Covid19 virus HP 11/12 [x] JERMAINE DS 11/24 [x] Temp=99.2 Respi=20 Vital Signs 11/12 [x] Atzun=216 OB=305/56 Vital Signs 11/19 [x] WBC: 11/20=14.0 11/22=14.3 Laboratory 11/20 [x] Lactic Acid: 11/12=2.3,2.7 Laboratory 11/12 [x] Blood culture: Coagulase neg Staphylococcus Laboratory 11/12 Present Risk Factors Results and Location in Medical Record [x] 75 years old male HP 11/12 [x] DM HP 11/12 [x] Obesity HP 11/12 [x] Covid19 PNA HP 11/12 Present Treatments Results and Location in Medical Record [x] Intubation with ventilation DS 11/24 [x] Azithromycin 500mg IV DEC 25 [x] Rocephin 2gm IV DEC 25 [x] IVF DEC 25 [x] Remdesivir 200mg IV DEC 25 [x] Levophed 250ml IV DEC 25 [x] Pulmonology Consult Consult 11/17 CDS/Body Welder Signature: Dexter Kwon Phone #: ext [phone] Date/Time: 11/27/20 This is a permanent part of the Medical Record [facility]
--- NOTE | 2020-12-02 21:50 | EKG ---
Test Reason : SOB Blood Pressure : / mmHG Vent. Rate : 071 BPM Atrial Rate : 071 BPM P-R Int : 152 ms QRS Dur : 098 ms QT Int : 396 ms P-R-T Axes : 044 -30 015 degrees QTc Int : 430 ms Normal sinus rhythm Left axis deviation Confirmed by FREDRICK SAMUELS DO ([id number]), newspaper editor DEA GODOY ([id number]) on 12/02/2020 9:50:05 PM Referred By: ARVIND Confirmed By:FREDRICK SAMUELS DO
== END 2020-11-24 10:56 | disposition hospice, inpatient (51) | DRG 870 ==
LOC: ERS 12:53 → ERHOLD 17:20 → T4-A 23:00 → 2SW 11-17 20:29 → CCU 11-19 16:24
PROVIDERS: ADMIT Internal Medicine; ATTEND Internal Medicine
PROC: XW033E5 Introduction of Remdesivir Anti-infective into Peripheral Vein, Percutaneous Approach, New Technology Group 5 (ICD-10-PCS; 2020-11-13)
PROC: 5A09457 Assistance with Respiratory Ventilation, 24-96 Consecutive Hours, Continuous Positive Airway Pressure (ICD-10-PCS; 2020-11-17)
PROC: 0BH17EZ Insertion of Endotracheal Airway into Trachea, Via Natural or Artificial Opening (ICD-10-PCS; principal; 2020-11-19)
PROC: 5A1955Z Respiratory Ventilation, Greater than 96 Consecutive Hours (ICD-10-PCS; 2020-11-19)
PROC: 3E033XZ Introduction of Vasopressor into Peripheral Vein, Percutaneous Approach (ICD-10-PCS; 2020-11-24)
DX: A41.89 Other specified sepsis (principal); U07.1 COVID-19; Z66 Do not resuscitate; Z51.5 Encounter for palliative care; J96.01 Acute respiratory failure with hypoxia; J12.82 Pneumonia due to coronavirus disease 2019; J93.12 Secondary spontaneous pneumothorax; T79.7XXA Traumatic subcutaneous emphysema, initial encounter; I47.1 Supraventricular tachycardia; N17.9 Acute kidney failure, unspecified; I25.10 Atherosclerotic heart disease of native coronary artery without angina pectoris; K21.9 Gastro-esophageal reflux disease without esophagitis; E78.5 Hyperlipidemia, unspecified; E11.65 Type 2 diabetes mellitus with hyperglycemia; E66.9 Obesity, unspecified; E87.5 Hyperkalemia; X58.XXXA Exposure to other specified factors, initial encounter; Z77.090 Contact with and (suspected) exposure to asbestos; N18.9 Chronic kidney disease, unspecified; I12.9 Hypertensive chronic kidney disease with stage 1 through stage 4 chronic kidney disease, or unspecified chronic kidney disease; E11.22 Type 2 diabetes mellitus with diabetic chronic kidney disease; Z68.45 Body mass index [BMI] 70 or greater, adult; Z95.5 Presence of coronary angioplasty implant and graft; Z79.01 Long term (current) use of anticoagulants; Z79.82 Long term (current) use of aspirin; Z79.4 Long term (current) use of insulin; Z79.899 Other long term (current) drug therapy
CPT/HCPCS: 36415; 36416; 36600; 71045; 71250; 80048; 80053; 80076; 82728; 82805; 83605; 83735; 83880; 84484; 85007; 85025; 85027; 85379; 86140; 87040; 87149; 93005; 94002; 94003; 94660; 96365; 96367; 96375; C9113; J0456; J0696; J1100; J1650; J1815; J1940; J2060; J2185; J2270; J2704; J3010; J3490

== ENCOUNTER 2020-11-24 11:04 | Inpatient (IN) | payer OTHER | END 2020-11-24 11:45 | disposition E | DRG 951 | LOC: CCU 11:04 | PROVIDERS: ADMIT Family Medicine; ATTEND Family Medicine | DX: Z51.5 Encounter for palliative care (principal); U07.1 COVID-19; J12.82 Pneumonia due to coronavirus disease 2019; J96.01 Acute respiratory failure with hypoxia; N17.9 Acute kidney failure, unspecified; J93.9 Pneumothorax, unspecified; Z66 Do not resuscitate; I25.10 Atherosclerotic heart disease of native coronary artery without angina pectoris; K21.9 Gastro-esophageal reflux disease without esophagitis; E78.5 Hyperlipidemia, unspecified; I10 Essential (primary) hypertension; E11.9 Type 2 diabetes mellitus without complications; E66.9 Obesity, unspecified; R19.7 Diarrhea, unspecified; Z95.5 Presence of coronary angioplasty implant and graft; Z98.890 Other specified postprocedural states; Z79.82 Long term (current) use of aspirin; Z79.4 Long term (current) use of insulin; Z79.899 Other long term (current) drug therapy ==